=== PATIENT | male | born 1955 | race Caucasian/White ===

== ENCOUNTER 2021-03-26 10:21 | Outpatient (CLI) | payer BC, SELFPAY ==
--- NOTE | ~2021-03-26 | US_ITS ---
EXAMINATION: US carotid duplex BI DATE: 03/26/2021 10:51 INDICATION: Carotid bruit. TECHNIQUE: Grayscale, color Doppler, and pulsed Doppler images of the cervical carotid arteries were obtained. The degree of vessel stenosis is placed in one of the following categories: normal, <50%, 5 0-69%, >=70% but less than near-occlusion, near-occlusion, or total occlusion. Note that percent sten osis relative to normal distal artery lumen diameter is indirectly measured from velocity measurement s as described by Casper, et al. Radiology 2003; 229:340-346. COMPARISON: Ultrasound 10/20/2017 FINDINGS: RIGHT: The right common carotid artery (CCA) peak systolic velocity (PSV) is 108 cm/s. The right internal ca rotid artery (ICA) PSV is 54 cm/s. The right ICA end-diastolic velocity (EDV) is 17 cm/s. The right I CA/CCA PSV ratio is 0.5. Grayscale and color Doppler images yield an estimate of <50% diameter reduct ion from plaque in the ICA. There is antegrade flow in the right vertebral artery. LEFT: The left CCA PSV is 94 cm/s. The left ICA PSV is 67 cm/s. The left ICA EDV is 22 cm/s. The left ICA/C CA PSV ratio is 0.7. Shadowing plaque in the ICA obscures the lumen. There is antegrade flow in the l eft vertebral artery. IMPRESSION: 1. <50% stenosis in the right internal carotid artery. 2. <50% stenosis in the left internal carotid artery. Reviewed, dictated and finalized at location A. CEMENTER
== END 2021-03-26 10:22 | disposition home or self-care (01) ==
LOC: ANHIMG 10:28
PROVIDERS: PCP Family Medicine; Visit Provider Family Medicine
DX: R09.89 Other specified symptoms and signs involving the circulatory and respiratory systems (principal); I65.23 Occlusion and stenosis of bilateral carotid arteries
CPT/HCPCS: 93880

== ENCOUNTER 2023-01-13 13:53 | Observation (INO) | payer MEDICARE, SELFPAY ==
[2023-01-13] VITALS (8 sets, daily range): BP systolic 116–138; BP diastolic 72–84; PULSE 76–98; RESP 16–20; TEMP 36.8–37.3; O2SAT 98–99; BMI 32.1
--- NOTE | ~2023-01-13 | XR_ITS ---
XR chest 2V 01/13/2023 14:21 Indication: Chest pain. Hypertension. Procedure: PA and lateral views of the chest Comparison: No prior studies for comparison. Findings: Bibasilar atelectasis. Heart size normal. No focal air space disease, pulmonary edema, pleu ral effusion or suspected pneumothorax. No pleural effusion or pneumothorax. No acute osseous abnorma lity. Impression: 1: Bibasilar atelectasis. Reviewed, dictated and finalized at location B. Impression: 1: Bibasilar atelectasis.
--- NOTE | 2023-01-13 13:58 | ECG_ITS ---
Measurements Intervals [place] Rate: 90 P: 47 VA: 155 QRS: -22 QRSD: 96 T: 7 QT: 353 QTc: 434 Interpretive Statements SINUS RHYTHM DELAYED PRECORDIAL R/S TRANSITION BORDERLINE T WAVE ABNORMALITY- INFERIOR LEADS BORDERLINE ECG NO PREVIOUS ECG AVAILABLE FOR COMPARISON Electronically Signed On 01-13-2023 14:13:19 CDT by Harmeet Arellano D.O.
[2023-01-13 14:36] LABS: Basophils Absolute Auto 0.1 K/mm3 (0.0-0.1); Basophils Percent Auto 0.5 % (0.2-1.2); Eosinophils Absolute Auto 0.3 K/mm3 (0-0.3); Eosinophils Percent Auto 2.4 % (0-4.4); Hematocrit 43.7 % (42.0-52.0); Hemoglobin 15.8 g/dL (14.0-18.0); Immature Granulocyte Absolute 0.04 K/mm3 (0.00-0.031); Immature Granulocyte Percent A 0.3 % (0-0.5); Lymphocytes Absolute Auto 1.13 K/mm3 (0.9-3.2); Lymphocytes Percent Auto 9.2 % (18.3-44.2); Mean Corpuscular HGB Conc 36.2 g/dl (32-36); Mean Corpuscular Hemoglobin 32.1 pg (26-34); Mean Corpuscular Volume 88.8 fl (80-100); Mean Platelet Volume 8.8 fl (7.4-10.4); Monocytes Percent Auto 7.7 % (2.6-8.5); Neutrophils Absolute Auto 9.8 K/mm3 (1.3-6.7); Neutrophils Percent Auto 79.9 % (45.5-73.1); Platelet Count Result 178 k/mm3 (150-375); Red Blood Count 4.92 M/mm3 (4.6-6.20); Red Cell Distribution Width 12.4 % (11.5-14.5); White Blood Count 12.3 K/mm3 (4.5-10.0)
[2023-01-13 15:05] LABS: Prothrombin Time 13.4 Seconds (11.1-14.7)
[2023-01-13 15:06] LABS: Partial Thromboplastin Time 29.1 SECONDS (22.3-36.8)
[2023-01-13 15:31] LABS: Alanine Aminotransferase 37 U/L (6-50); Albumin Level 4.4 g/dL (3.5-5.1); Alkaline Phosphatase 69 U/L (38-126); Anion Gap 6 mmol/L (8-16); Aspartate Amino Transferase 37 U/L (17-59); Bilirubin,Total 0.8 mg/dL (0.2-1.3); Blood Urea Nitrogen 14 mg/dL (9-20); Calcium 9.1 mg/dL (8.4-10.2); Carbon Dioxide 25 mmol/L (22-30); Chloride 97 mmol/L (98-107); Estimated CRCL calculation 85 ml/min; Estimated Glomerular Filt Rate > 60; Glucose 95 mg/dL (65-110); Lipase 108 U/L (23-300); Potassium 3.6 mmol/L (3.4-5.0); Sodium 128 mmol/L (137-145); Troponin I < 0.012 ng/mL (0.000-0.034)
--- NOTE | 2023-01-13 15:50 | ED.CHESTPAIN ---
HPI - Chest Pain General Chief Complaint: Chest Pain Stated Complaint: CHEST PAIN Time Seen by Provider: 01/13/23 15:07 History of Present Illness HPI narrative: Patient is a 67-year-old male with a history of hypertension, hyperlipidemia, asthma presenting with chest pain. States that this morning he developed a dull pain on the left side of his chest that went into his left jaw. He told his who called EMS. He was given nitro which did improve the pain. States that since he has been resting he currently has no pain. States that he actually had a similar episode several weeks ago that woke him from sleep. States that he had left-sided chest pain at that time but it resolved so he ignored it. Denies recent infectious symptoms. No diaphoresis, palpitations, lightheadedness, nausea, leg swelling. Related Data Home Medications Medication Instructions Recorded Confirmed albuterol sulfate 2 puff inhalation TID PRN 01/13/23 01/13/23 Shortness Of Breath aspirin 81 mg PO DAILY 01/13/23 01/13/23 budesonide-formoterol HFA 160 2 puff inhalation DAILY PRN 01/13/23 01/13/23 mcg-4.5 mcg/actuation aerosol Shortness Of Breath inhaler (Symbicort) ergocalciferol (vitamin D2) 1,250 1,250 mcg PO WEEKLY 01/13/23 01/13/23 mcg (50,000 unit) capsule latanoprost 0.005 % eye drops 1 drp EACH EYE DAILY 01/13/23 01/13/23 loratadine 10 mg tablet (Claritin) 10 mg PO DAILY 01/13/23 01/13/23 tamsulosin 0.4 mg capsule 0.4 mg PO DAILY 01/13/23 01/13/23 Allergies Allergy/AdvReac Type Severity Reaction Status Date / Time No Known Allergies Allergy Mild Verified 01/13/23 14:24 Review of Systems Review of Systems: All systems reviewed & are unremarkable except as noted in HPI and below PMFSH Past Medical History Medical History (Updated 01/19/23 @ 00:29 by Umm Ralph MD) Asthma BPH (benign prostatic hyperplasia) GERD (gastroesophageal reflux disease) HLD (hyperlipidemia) HTN (hypertension) Surgical History Surgical History (Updated 01/13/23 @ 23:25 by Ashlyn Oleary APRN) History of hernia repair History of repair of hiatal hernia Social History Social History Smoking status: Never smoker Alcohol intake: never Substance use: never Lack of Transportation: No Lack of Food: Never True Current Housing: I Have Housing Concerned About Future Housing: No Difficulty Paying Gas/Electric Bills: No Difficulty Paying for Meds: No Currently Unemployed: No Education: Master's Degree or Higher Difficulty w/ Childcare or Family Care: No Spiritual care concerns: No Exam Narrative: GENERAL: Well-appearing and in no acute distress. Pleasant and cooperative HEAD: Normocephalic, atraumatic. EYES: PERRLA and EOMI. ENT: Grossly unremarkable NECK: Supple. CHEST: Clear to auscultation. No respiratory distress. No chest wall tenderness HEART: Regular rate and rhythm. ABDOMEN: Soft, nontender, nondistended EXTREMITIES: Normal range of motion. No edema. SKIN: Warm, dry, no rash. NEURO: No focal deficits. Alert and oriented x3. PSYCH: Normal mood and affect. Course Vital Signs Vital signs: Vital Signs Temperature 99.2 F 01/13/23 13:45 Pulse Rate 98 01/13/23 13:45 Respiratory Rate 20 01/13/23 13:45 Blood Pressure 126/83 01/13/23 13:45 Pulse Oximetry 98 01/13/23 13:45 Oxygen Delivery Room Air 01/13/23 13:45 Temperature 98.4 F 01/14/23 14:10 Pulse Rate 72 01/14/23 14:10 Respiratory Rate 16 01/14/23 14:10 Blood Pressure 145/86 H 01/14/23 14:10 Pulse Oximetry 100 01/14/23 14:10 Oxygen Delivery Room Air 01/14/23 10:00 Fraction of Inspired Oxygen 21 01/14/23 07:44 MDM - Chest Pain MDM Narrative Medical decision making narrative: Patient is a 67-year-old male presenting with left-sided chest pain. Vitals are stable. Exam remarkable for the above. EKG per my interpretation shows
[2023-01-13 17:40] LABS: Troponin I < 0.012 ng/mL (0.000-0.034)
[2023-01-13] MEDS: ACETAMINOPHEN 500 MG TABLET 1000 MG PO (20:02)
[2023-01-13 20:28] LABS: Troponin I < 0.012 ng/mL (0.000-0.034)
--- NOTE | 2023-01-13 23:14 | PM.IMHP ---
H&P: HPI History of Present Illness Date/Time: 01/13/23 23:14 Chief Complaint: Chest Pain Narrative: 67 y/o M presents here with chest pain w/radiation into jaw with PMH of HTN, HLD, GERD, BPH, SIDNEY w/home CPAP, and asthma. Patient presents here chest pain began 12:00 p.m., no exertion during initial symptoms. Pain radiated into his jaw, described as a dull ache, constant, and indigestion. No other associated symptoms - diaphoresis, nausea, shortness of breath. Given once sublingual nitro by EMS with partial resolution of pain. Two additional sublingual nitro given in ED with full resolution of pain. Current level - 04/26, described as achy. Indigestion has resolved. Patient reports 1 similar previous episode 2 weeks ago. Chest pain woke the patient up in the middle of the night and lasted approximately 1 hour. Hypertension is currently managed by patient's PCP. No significant family cardiac history. Review of Systems Review of Systems: All systems reviewed & are unremarkable except as noted in HPI and below PMFSH Past Medical History Medical History (Updated 01/13/23 @ 23:46 by Ashlyn Oleary APRN) Asthma BPH (benign prostatic hyperplasia) GERD (gastroesophageal reflux disease) HLD (hyperlipidemia) HTN (hypertension) Surgical History Surgical History (Updated 01/13/23 @ 23:25 by Ashlyn Oleary APRN) History of hernia repair History of repair of hiatal hernia Social History Social History Smoking status: Never smoker Alcohol intake: never Substance use: never Lack of Transportation: No Lack of Food: Never True Current Housing: I Have Housing Concerned About Future Housing: No Difficulty Paying Gas/Electric Bills: No Difficulty Paying for Meds: No Currently Unemployed: No Education: Master's Degree or Higher Difficulty w/ Childcare or Family Care: No Spiritual care concerns: No Meds Home Medications and Allergies Home Medications Medication Instructions Recorded Confirmed Type albuterol sulfate 2 puff inhalation TID PRN 01/13/23 01/13/23 History Shortness Of Breath aspirin 81 mg PO DAILY 01/13/23 01/13/23 History budesonide-formoterol HFA 160 2 puff inhalation DAILY PRN 01/13/23 01/13/23 History mcg-4.5 mcg/actuation aerosol Shortness Of Breath inhaler (Symbicort) ergocalciferol (vitamin D2) 1,250 1,250 mcg PO WEEKLY 01/13/23 01/13/23 History mcg (50,000 unit) capsule famotidine 40 mg tablet 40 mg PO DAILY 01/13/23 01/13/23 History latanoprost 0.005 % eye drops 1 drp EACH EYE DAILY 01/13/23 01/13/23 History loratadine 10 mg tablet (Claritin) 10 mg PO DAILY 01/13/23 01/13/23 History olmesartan 40 1 tablet PO DAILY 01/13/23 01/13/23 History mg-hydrochlorothiazide 12.5 mg tablet tamsulosin 0.4 mg capsule 0.4 mg PO DAILY 01/13/23 01/13/23 History Allergies Allergy/AdvReac Type Severity Reaction Status Date / Time No Known Allergies Allergy Mild Verified 01/13/23 14:24 Vital Signs Vital Signs - 24 hr 01/13/23 13:45 01/13/23 14:01 01/13/23 15:01 Temperature 99.2 F Pulse Rate 98 92 78 Respiratory Rate 20 18 19 Blood Pressure 126/83 136/81 130/81 Pulse Oximetry 98 98 98 Oxygen Delivery Room Air 01/13/23 13:45 01/13/23 16:00 01/13/23 17:51 Temperature Pulse Rate 83 76 Respiratory Rate 16 16 Blood Pressure 116/84 126/78 Pulse Oximetry 99 98 Oxygen Delivery Room Air 01/13/23 18:31 01/13/23 18:55 01/13/23 20:04 Temperature 98.2 F 98.2 F Pulse Rate 82 82 Respiratory Rate 18 18 Blood Pressure 128/72 138/78 Pulse Oximetry 98 99 Oxygen Delivery Room Air 01/13/23 20:00 01/13/23 20:00 01/13/23 22:41 Temperature Pulse Rate 82 83 Respiratory Rate 18 Blood Pressure Pulse Oximetry 99 Oxygen Delivery Room Air CPAP Exam Const: General: comfortable and no acute distress HENMT: Face/Nose/Sinus: Normal nares present Mouth:
[2023-01-14] VITALS (8 sets, daily range): BP systolic 130–145; BP diastolic 79–86; PULSE 68–84; RESP 16–18; TEMP 36.6–36.9; O2SAT 98–100
--- NOTE | 2023-01-14 | ECHO_ITS ---
Patient Info Name: Tunde Roberts Age: 67 years : 1955 Gender: Male Ht: 67 in Wt: 200 lbs BSA: 2.10 m2 HR: 68 bpm BP: 130 / 79 mmHg Heart Rhythm: Sinus Rhythm Technical Quality: Good Exam Date: 01/14/2023 11:11 AM Exam Location: [facility] Patient Status: Inpatient Admit Date: 01/13/2023 Staff Ordering Physician: Ashlyn Oleary APRN Media Manager: Zoë Reeder RDCS Attending Provider: Brittany Avila MD Referring Physician: Anirudh DUNCAN; Exam Type: CA echo doppler color flow Study Info Indications - CP, new murmur Complete two-dimensional, color flow and Doppler transthoracic echocardiogram is performed. Summary 1. Complete two-dimensional, color flow and Doppler transthoracic echocardiogram is performed. 2. Normal left ventricular size and systolic function without ischemic wall motion abnormalities. 3. No valvular dysfunction. Left Ventricle Left ventricular chamber dimension is normal. Left ventricular systolic function is normal, estimated at 65-70%. There is mild concentric increased left ventricular wall thickness. The left ventricular diastolic function is normal. Right Ventricle Right ventricular chamber dimension is normal. Left Atria Left atrial chamber dimension is normal. Right Atria Right atrial chamber dimension is normal. Aortic Valve The aortic valve is normal. Pulmonic Valve The pulmonic valve is not well visualized. Mitral Valve The mitral valve has normal leaflets. There is trace mitral valve regurgitation. Tricuspid Valve The tricuspid valve leaflets are normal. Pericardium/Pleural The pericardium appears normal. Aorta The aortic root size at the sinus of Valsalva is normal. Left Ventricular Outflow Tract Name Value Normal LVOT 2D LVOT Diameter 1.8 cm LVOT Doppler LVOT Peak Gradient 5 mmHg LVOT Mean Gradient 3 mmHg LVOT VTI 37 cm LVOT VTI/AV VTI Ratio 1.0 LVOT Stroke Volume 94 ml LVOT CO 4.9 l/min LVOT CI 2.4 l/min/m2 Pulmonic Valve Name Value Normal RVOT Doppler RVOT Peak Gradient 3 mmHg PV Doppler PV Peak Gradient 4 mmHg Mitral Valve Name Value Normal MV Doppler MV Decel [place] 311 cm/s2 MV PHT 85 ms MV Area (PHT) 2.6 cm2 4.0-5.0 MV Regurgitation Doppler
[2023-01-14 00:48] LABS: Appearance Urine Clear (Clear); Bilirubin Urine Negative (Negative); Blood Urine Negative (Negative); Color Urine Yellow (Yellow); Glucose Urine UA Negative (Negative); Ketones Urine Negative (Negative); Leukocyte Esterase Ur Negative LEU/UL (NEGATIVE); Nitrate Urine Negative (Negative); Protein Urine Negative (Negative); Specific Grav Ur 1.013 (1.001-1.035); Urobilinogen Urine 0.2 mg/dL (<2.0)
[2023-01-14 01:28] LABS: Add Urine Microscopic? NO
[2023-01-14 01:32] LABS: Sodium Urine Random 57 meq/L
[2023-01-14] MEDS: FLUTICASONE/SALMETEROL 115-21 MCG INHALER 1 PUFF 2 PUFF INHALATION (07:41)
--- NOTE | 2023-01-14 09:33 | P.PNIM_ITS ---
Progress Note: A&P Assessment and Plan (1) Chest pain at rest: Code(s): R07.9 - Chest pain, unspecified Status: Acute (2) Murmur, cardiac: Code(s): R01.1 - Cardiac murmur, unspecified Status: Acute (3) Acute hyponatremia: Code(s): E87.1 - Hypo-osmolality and hyponatremia Status: Acute Plan 1. Chest pain at rest * Initial EKG impression Sinus rhythm no specific T-wave changes * Troponin negative X3 * CXR impression 1: Bibasilar atelectasis. * Carotid Doppler study -03/26/21 1. <50% stenosis in the right internal carotid artery. 2. <50% stenosis in the left internal carotid artery. * Heart Score History - highly suspicious given resolution of pain with nitro SL x3, +2 EKG - repolarization disturbance (delayed precordial transition), +1 Age - >65, +2 RF - HTN, HLD (2), +1 Initial Trop - negative, 0 Total: 6 * Stress Test - complete on Mon, NPO at midnight on Sun * SL nitro PRN for reoccurrence of CP * consult cardiology. Network Support Administrator considers patient needs outpatient stress test, and has agreed to discharge patient today 2. Murmur, cardiac * No previous history per patient * Family history of bicuspid valve (father) requiring replacement. * No evidence of volume overload, third spacing * No previous echo on file, echo normal EF, no significant valvular disease 3. Hyponatremia * Initial Na - 128 * Check serum osmolality, urine osmolality, and urine sodium concentration as well as a UA. * further plan of care to be determined based off results Chronic Conditions - HTN: Continue home medication - olmesartan, HCTZ, ASA 81 - Asthma: Continue home medication - albuterol, Advair - SIDNEY: continue home CPAP - BPH: Continue home medication - tamsulosin - supplements: Continue ergocalciferol - continue home latanoprost eye drop Acid reflux Start Protonix 40 mg daily p.o.. If persists, patient needs to see primary care doctor and referral to GI for further workup per primary care doctor Diet: heart healthy GI Prophylaxis: home famotidine DVT Prophylaxis: SCDs, Lovenox 40 Lines: pIV Code Status: Full Code Subjective Date/time seen: 01/14/23 09:33 Interval history: I saw on exam patient today. Patient denies chest pain, palpitation, shortness breast, abdomen pain. Patient has acid reflux, denies nausea vomiting diarrhea melena red blood per rectum Exam Narrative: GENERAL: Pleasant, in no acute distress. Well-nourished. - EYES: EOMI. Anicteric. - HENT: Moist mucous membranes. - LUNGS: Clear to auscultation bilateral ly, no wheezing, rhonchi, or rales. - CARDIOVASCULAR: Regular rate and rhyth m. No murmur. No JVD. - ABDOMEN: Soft, non-tender and non-dist ended. No palpable masses. - EXTREMITIES: No edema. Peripheral puls es 2+. Non-tender. - NEUROLOGIC: No focal neurological defi cits. CN II-XII grossly intact. - PSYCHIATRIC: Awake, Alert and oriented x 3. Appropriate mood and affect. - SKIN: No rashes or lesions. Warm. - LYMPH: No cervical lymphadenopathy. Objective Data Vital Signs Vital Signs:
--- NOTE | 2023-01-14 09:33 | PM.IMPN ---
Progress Note: A&P Assessment and Plan (1) Chest pain at rest: Code(s): R07.9 - Chest pain, unspecified Status: Acute (2) Murmur, cardiac: Code(s): R01.1 - Cardiac murmur, unspecified Status: Acute (3) Acute hyponatremia: Code(s): E87.1 - Hypo-osmolality and hyponatremia Status: Acute Plan 1. Chest pain at rest Initial EKG impression Sinus rhythm no specific T-wave changes Troponin negative X3 CXR impression 1: Bibasilar atelectasis. Carotid Doppler study -03/26/21 1. <50% stenosis in the right internal carotid artery. 2. <50% stenosis in the left internal carotid artery. Heart Score History - highly suspicious given resolution of pain with nitro SL x3, +2 EKG - repolarization disturbance (delayed precordial transition), +1 Age - >65, +2 RF - HTN, HLD (2), +1 Initial Trop - negative, 0 Total: 6 Stress Test - complete on Mon, NPO at midnight on Sun SL nitro PRN for reoccurrence of CP consult cardiology. Scrap Drop Crane Operator considers patient needs outpatient stress test, and has agreed to discharge patient today 2. Murmur, cardiac No previous history per patient Family history of bicuspid valve (father) requiring replacement. No evidence of volume overload, third spacing No previous echo on file, echo normal EF, no significant valvular disease 3. Hyponatremia Initial Na - 128 Check serum osmolality, urine osmolality, and urine sodium concentration as well as a UA. further plan of care to be determined based off results Chronic Conditions - HTN: Continue home medication - olmesartan, HCTZ, ASA 81 - Asthma: Continue home medication - albuterol, Advair - SIDNEY: continue home CPAP - BPH: Continue home medication - tamsulosin - supplements: Continue ergocalciferol - continue home latanoprost eye drop Acid reflux Start Protonix 40 mg daily p.o.. If persists, patient needs to see primary care doctor and referral to GI for further workup per primary care doctor Diet: heart healthy GI Prophylaxis: home famotidine DVT Prophylaxis: SCDs, Lovenox 40 Lines: pIV Code Status: Full Code Subjective Date/time seen: 01/14/23 09:33 Interval history: I saw on exam patient today. Patient denies chest pain, palpitation, shortness breast, abdomen pain. Patient has acid reflux, denies nausea vomiting diarrhea melena red blood per rectum Exam Narrative: GENERAL: Pleasant, in no acute distress. Well-nourished. - EYES: EOMI. Anicteric. - HENT: Moist mucous membranes. - LUNGS: Clear to auscultation bilaterally, no wheezing, rhonchi, or rales. - CARDIOVASCULAR: Regular rate and rhythm. No murmur. No JVD. - ABDOMEN: Soft, non-tender and non-distended. No palpable masses. - EXTREMITIES: No edema. Peripheral pulses 2+. Non-tender. - NEUROLOGIC: No focal neurological deficits. CN II-XII grossly intact. - PSYCHIATRIC: Awake, Alert and oriented x 3. Appropriate mood and affect. - SKIN: No rashes or lesions. Warm. - LYMPH: No cervical lymphadenopathy. Objective Data Vital Signs Vital Signs: Vital Signs - 24 hr 01/13/23 13:45 01/13/23 14:01 01/13/23 15:01 Temperature 99.2 F Pulse Rate 98 92 78 Respiratory Rate 20 18 19 Blood Pressure 126/83 136/81 130/81 Pulse Oximetry 98 98 98 Oxygen Delivery Room Air Fraction of Inspired Oxygen 01/13/23 13:45 01/13/23 16:00 01/13/23 17:51 Temperature Pulse Rate 83 76 Respiratory Rate 16 16 Blood Pressure 116/84 126/78 Pulse Oximetry 99 98 Oxygen Delivery Room Air Fraction of Inspired Oxygen 01/13/23 18:31 01/13/23 18:55 01/13/23 20:04 Temperature 98.2 F 98.2 F Pulse Rate 82 82 Respiratory Rate 18 18 Blood Pressure 128/72 138/78 Pulse Oximetry 98 99 Oxygen Delivery Room Air Fraction of Inspired Oxygen 01/13/23 20:00 01/13/23 20:00 01/13/23 22:41 Temperature Pulse Rate 82 83 Respiratory Rate 18 Blood Pressure Pulse Oximetry 99 Oxygen Delivery Room
[2023-01-14 09:59] LABS: Basophils Absolute Auto 0.1 K/mm3 (0.0-0.1); Basophils Percent Auto 0.7 % (0.2-1.2); Eosinophils Absolute Auto 0.4 K/mm3 (0-0.3); Eosinophils Percent Auto 4.2 % (0-4.4); Hematocrit 44.1 % (42.0-52.0); Hemoglobin 15.6 g/dL (14.0-18.0); Immature Granulocyte Absolute 0.02 K/mm3 (0.00-0.031); Immature Granulocyte Percent A 0.2 % (0-0.5); Lymphocytes Absolute Auto 1.56 K/mm3 (0.9-3.2); Lymphocytes Percent Auto 18.6 % (18.3-44.2); Mean Corpuscular HGB Conc 35.4 g/dl (32-36); Mean Corpuscular Hemoglobin 32.4 pg (26-34); Mean Corpuscular Volume 91.5 fl (80-100); Mean Platelet Volume 9.6 fl (7.4-10.4); Monocytes Percent Auto 11.9 % (2.6-8.5); Neutrophils Absolute Auto 5.4 K/mm3 (1.3-6.7); Neutrophils Percent Auto 64.4 % (45.5-73.1); Platelet Count Result 177 k/mm3 (150-375); Red Blood Count 4.82 M/mm3 (4.6-6.20); Red Cell Distribution Width 12.8 % (11.5-14.5); White Blood Count 8.4 K/mm3 (4.5-10.0)
--- NOTE | 2023-01-14 10:03 | PM.CNCAR ---
Assessment and Plan Assessment and plan (1) Chest pain at rest: Code(s): R07.9 - Chest pain, unspecified Status: Acute Plan This is a 67-year-old man who has no prior history of coronary artery disease presenting with an episode of chest pain yesterday that lasted for a number of hours. In the face of this there is no objective evidence of myocardial injury with 3- troponin levels and a unremarkable appearing electrocardiogram. Risk factors of course include hypertension and dyslipidemia. He does also have a soft right carotid bruit on exam and a murmur compatible with aortic valve sclerosis. The characteristics of this murmur are not consistent with significant aortic stenosis and I do not believe that has anything to do with an episode of chest pain which is being described above. Performing a stress test is reasonable given his risk factors. It is my opinion that he is stable for discharge in the stress test can certainly be done as an outpatient. If it is your desire to keep him in the hospital perform the test as has been ordered for Monday that is of course fine as well. Tunde Camreon MD [facility] History of Present Illness History of Present Illness Consult date/time: 01/14/23 10:03 Reason For Visit: Chest Pain Narrative: This is a very pleasant 67-year-old man I am seeing at the request of the hospitalist's because of chest pain. The patient is not known to have any cardiac problems before this and began to experience chest pain yesterday late in the morning and eventually came to the emergency room for evaluation. He describes this as a dull aching pain in the center substernal region sometimes to the left side of the chest and up into the left side of the neck. The symptoms he thought felt like a chest wall/pulled muscle problem as he did notice that moving his arms around on the left side did sometimes make this worse. He did not have any radiation anywhere else he did not experience any shortness of breath diaphoresis or nausea. The symptom was of concern so he called an nurse that is provided by his insurance company would tries to call an ambulance and come to the emergency department. On route he was given nitroglycerin which significantly improved the pain but did not alleviated entirely. Over the course of the next 4-5 hours the symptoms gradually subsided. His emergency room evaluation was unremarkable since admission he has not had any further symptoms he has had of course a series of 3 troponin levels done which are all unremarkable. He does not notice any history of exertional symptoms in general he with activity he does not trigger chest pain shortness of breath he has not been experiencing any palpitations orthopnea PND or edema. He has a history of hypertension and history of dyslipidemia and asthma. The hospitalist's note have been reviewed. They have ordered a Lexiscan nuclear stress test which of course will be performed on Monday if he stays in the hospital. Review of Systems Constitutional: Constitutional: Reports no additional constitutional complaints Eyes: Eyes: Reports no additional eye complaints ENT: Reports system reviewed and no additional complaints, except as documented Cardiovascular: Cardiovascular: Reports as per HPI Respiratory: Respiratory: Reports no additional respiratory complaints Gastrointestinal: Gastrointestinal: Reports heartburn Musculoskeletal: Musculoskeletal: Reports back pain Integumentary/Breasts: Skin/Breast: Reports system reviewed and no additional complaints, except as docu Neurologic: Reports system reviewed and no additional complaints, except as documented Endocrine: Endocrine: Reports no additional endocrine complaints Hematologic/Lymphatic: Hematologic/Lymphatic: Reports no additional hematologic/lymphatic complaints Allergic/Immunologic: Allergic/Immunologic: Reports no additional allergic/immunologic complaints PMFSH Past Medical History
[2023-01-14 10:10] LABS: Anion Gap 7 mmol/L (8-16); Blood Urea Nitrogen 13 mg/dL (9-20); Calcium 9.4 mg/dL (8.4-10.2); Carbon Dioxide 27 mmol/L (22-30); Chloride 96 mmol/L (98-107); Estimated CRCL calculation 76 ml/min; Estimated Glomerular Filt Rate > 60; Glucose 99 mg/dL (65-110); Potassium 4.3 mmol/L (3.4-5.0); Sodium 130 mmol/L (137-145)
[2023-01-14] MEDS: OLMESARTAN MEDOXOMIL 20 MG TABLET 40 MG PO (10:21)
[2023-01-14] MEDS: FAMOTIDINE 20 MG TABLET 40 MG PO (10:22)
[2023-01-14] MEDS: ASPIRIN 81 MG ENTERIC TABLET PO (10:22)
[2023-01-14] MEDS: hydroCHLOROthiazide 12.5 MG CAPSULE PO (10:22)
[2023-01-14] MEDS: LORATADINE 10 MG TABLET PO (10:23)
[2023-01-14] MEDS: ENOXAPARIN 40 MG/0.4 ML SYRINGE SUB-Q (10:23)
[2023-01-14] MEDS: ACETAMINOPHEN 325 MG TABLET 650 MG PO (12:52)
--- NOTE | 2023-01-14 13:56 | PM.DS ---
DS: Admitting Diagnosis Discharge Date Today Admitting Diagnosis (1) Chest pain at rest: ?Code(s): R07.9 - Chest pain, unspecified ?Status:?Acute (2) Murmur, cardiac: ?Code(s): R01.1 - Cardiac murmur, unspecified ?Status:?Acute (3) Acute hyponatremia: ?Code(s): E87.1 - Hypo-osmolality and hyponatremia ?Status:?Acute DS: Discharge Diagnosis Discharge Diagnosis (1) Chest pain at rest: Code(s): R07.9 - Chest pain, unspecified Status: Acute (2) Murmur, cardiac: Code(s): R01.1 - Cardiac murmur, unspecified Status: Acute (3) Acute hyponatremia: Code(s): E87.1 - Hypo-osmolality and hyponatremia Status: Acute DS: Summary Hospital Course Hospital Course: Per H&P, 67 y/o M presents here with chest pain w/radiation into jaw with PMH of HTN, HLD, GERD, BPH, SIDNEY w/home CPAP, and asthma. Patient presents here chest pain began 12:00 p.m., no exertion during initial symptoms.? Pain radiated into his jaw, described as a dull ache, constant, and indigestion.? No other associated symptoms - diaphoresis, nausea, shortness of breath.? Given once sublingual nitro by EMS with partial resolution of pain.? Two additional sublingual nitro given in ED with full resolution of pain.? Current level - 04/26, described as achy.? Indigestion has resolved.? Patient reports 1 similar previous episode 2 weeks ago.? Chest pain woke the patient up in the middle of the night and lasted approximately 1 hour.? Hypertension is currently managed by patient's PCP.? No significant family cardiac history. The following medical issues have been addressed during hospitalization 1. Chest pain at rest Initial EKG impression Sinus rhythm no specific T-wave changes Troponin negative X3 CXR impression 1: Bibasilar atelectasis. Carotid Doppler study -03/26/21 1. <50% stenosis in the right internal carotid artery. 2. <50% stenosis in the left internal carotid artery. Heart Score History - highly suspicious given resolution of pain with nitro SL x3, +2 EKG - repolarization disturbance (delayed precordial transition), +1 Age - >65, +2 RF - HTN, HLD (2), +1 Initial Trop - negative, 0 Total: 6 Stress Test - complete on Mon, NPO at midnight on Sun SL nitro PRN for reoccurrence of CP consult cardiology. Dinkey Operator considers patient needs outpatient stress test, and has agreed to discharge patient today 2. Murmur, cardiac No previous history per patient Family history of bicuspid valve (father) requiring replacement. No evidence of volume overload, third spacing No previous echo on file, echo normal EF, no significant valvular disease 3. Hyponatremia Initial Na - 128 Check serum osmolality, urine osmolality pending report. Patient is on Benicar, possible per Renal Repeat sodium 130 Stop Benicar, start losartan 50 mg daily p.o. Start sodium chloride 1 g t.i.d. p.o. with meal for 10 days Patient needs to follow up with PCP for primary care doctor and recheck sodium level Chronic Conditions - HTN: Continue home medication -discontinue olmesartan/HCTZ, start losartan ASA 81 - Asthma: Continue home medication - albuterol, Advair - SIDNEY: continue home CPAP - BPH: Continue home medication - tamsulosin - supplements: Continue ergocalciferol - continue home latanoprost eye drop Acid reflux Start Protonix 40 mg daily p.o.. If persists, patient needs to see primary care doctor and referral to GI for further workup per primary care doctor Time Spent with Patient Time attestation: Total time spent providing and/or coordinating discharge services: Exam Narrative: GENERAL: Pleasant, in no acute distress. Well-nourished. - EYES: EOMI. Anicteric. - HENT: Moist mucous membranes. - LUNGS: Clear to auscultation bilaterally, no wheezing, rhonchi, or rales. - CARDIOVASCULAR: Regular rate and rhythm. No murmur. No JVD. - ABDOMEN: Soft, non-tender and non-distended. N
[2023-01-19 14:48] LABS: Osmolality, Urine 409 mOsm/kg (50-1200)
== END 2023-01-14 15:26 | disposition home or self-care (01) ==
LOC: ANHED 15:07 → ANH3MED 18:05
PROVIDERS: Emergency Medicine; Student in an Organized Health Care Education/Training Program; Admitting Provider Hospitalist; Emergency Provider Emergency Medicine; PCP Family Medicine; Visit Provider Hospitalist
DX: R07.9 Chest pain, unspecified (principal); R01.1 Cardiac murmur, unspecified; E87.1 Hypo-osmolality and hyponatremia; I10 Essential (primary) hypertension; J98.11 Atelectasis; E78.5 Hyperlipidemia, unspecified; K21.9 Gastro-esophageal reflux disease without esophagitis; J45.909 Unspecified asthma, uncomplicated; N40.0 Benign prostatic hyperplasia without lower urinary tract symptoms; G47.33 Obstructive sleep apnea (adult) (pediatric); Z99.89 Dependence on other enabling machines and devices; Z79.51 Long term (current) use of inhaled steroids; Z79.899 Other long term (current) drug therapy
CPT/HCPCS: 36415; 71046; 80048; 80053; 81003; 83690; 83930; 83935; 84300; 84484; 85025; 85610; 85730; 93005; 93306; 94640; 96372; 99285; A9270; G0378; J1650

== ENCOUNTER 2023-02-06 08:44 | Outpatient (CLI) | payer MEDICARE, SELFPAY ==
[2023-02-06 20:50] LABS: Anion Gap 7 mmol/L (8-16); Blood Urea Nitrogen 12 mg/dL (9-20); Calcium 9.7 mg/dL (8.4-10.2); Carbon Dioxide 27 mmol/L (22-30); Chloride 103 mmol/L (98-107); Estimated Glomerular Filt Rate > 60; Glucose 79 mg/dL (65-110); Sodium 137 mmol/L (137-145)
== END 2023-02-06 08:45 | disposition home or self-care (01) ==
PROVIDERS: PCP Nurse Practitioner Adult Health; Visit Provider Nurse Practitioner Adult Health
DX: E87.1 Hypo-osmolality and hyponatremia (principal)
CPT/HCPCS: 36415; 80048

== ENCOUNTER 2023-05-15 13:47 | Outpatient (CLI) | payer MEDICARE, SELFPAY ==
[2023-05-15 15:20] LABS: Anion Gap 9 mmol/L (8-16); Blood Urea Nitrogen 17 mg/dL (9-20); Calcium 9.2 mg/dL (8.4-10.2); Carbon Dioxide 28 mmol/L (22-30); Chloride 97 mmol/L (98-107); Estimated Glomerular Filt Rate > 60; Glucose 101 mg/dL (65-110); Potassium 3.7 mmol/L (3.4-5.0); Sodium 134 mmol/L (137-145)
== END 2023-05-15 13:48 | disposition home or self-care (01) ==
PROVIDERS: PCP Nurse Practitioner Adult Health; Visit Provider Nurse Practitioner Adult Health
DX: I10 Essential (primary) hypertension (principal)
CPT/HCPCS: 36415; 80048

== ENCOUNTER 2023-09-27 07:15 | Outpatient (CLI) | payer MEDICARE, SELFPAY ==
[2023-09-27 19:11] LABS: Basophils Absolute Auto 0.1 K/mm3 (0.0-0.1); Basophils Percent Auto 0.9 % (0.2-1.2); Eosinophils Absolute Auto 0.2 K/mm3 (0-0.3); Eosinophils Percent Auto 4.2 % (0-4.4); Hematocrit 45.6 % (42.0-52.0); Hemoglobin 15.6 g/dL (14.0-18.0); Immature Granulocyte Absolute 0.02 K/mm3 (0.00-0.031); Immature Granulocyte Percent A 0.3 % (0-0.5); Lymphocytes Absolute Auto 1.63 K/mm3 (0.9-3.2); Lymphocytes Percent Auto 28.2 % (18.3-44.2); Mean Corpuscular HGB Conc 34.2 g/dl (32-36); Mean Corpuscular Volume 93.4 fl (80-100); Mean Platelet Volume 9.4 fl (7.4-10.4); Monocytes Absolute Auto 0.5 K/mm3 (0.1-0.6); Monocytes Percent Auto 8.8 % (2.6-8.5); Neutrophils Absolute Auto 3.3 K/mm3 (1.3-6.7); Neutrophils Percent Auto 57.6 % (45.5-73.1); Platelet Count Result 174 k/mm3 (150-375); Red Blood Count 4.88 M/mm3 (4.6-6.20); Red Cell Distribution Width 13.6 % (11.5-14.5); White Blood Count 5.8 K/mm3 (4.5-10.0)
[2023-09-27 19:38] LABS: Alanine Aminotransferase 35 U/L (6-50); Albumin Level 4.2 g/dL (3.5-5.1); Alkaline Phosphatase 62 U/L (38-126); Anion Gap 6 mmol/L (4-12); Aspartate Amino Transferase 67 U/L (17-59); Bilirubin,Total 0.6 mg/dL (0.2-1.3); Blood Urea Nitrogen 13 mg/dL (9-20); Calcium 9.1 mg/dL (8.4-10.2); Carbon Dioxide 26 mmol/L (22-30); Chloride 102 mmol/L (98-107); Cholesterol 179 mg/dL (0-200); Estimated Glomerular Filt Rate > 60; Glucose 79 mg/dL (65-110); HDL Direct 29 mg/dL; Magnesium 2.1 mg/dL (1.6-2.3); Potassium 4.4 mmol/L (3.4-5.0); Sodium 134 mmol/L (137-145); Triglycerides 329 mg/dL (<150)
[2023-09-27 19:49] LABS: LDL Cholesterol Direct 96 mg/dL
== END 2023-09-27 07:16 | disposition home or self-care (01) ==
PROVIDERS: PCP Nurse Practitioner Adult Health; Visit Provider Nurse Practitioner Adult Health
DX: I10 Essential (primary) hypertension (principal)
CPT/HCPCS: 36415; 80053; 80061; 83735; 85025

== ENCOUNTER 2023-10-30 08:37 | Outpatient (CLI) | payer MEDICARE, SELFPAY ==
[2023-11-02 18:44] LABS: Testosterone Free 110.2 pg/mL (35.0-155.0); Testosterone Total 489 ng/dL (250-1100)
== END 2023-10-30 08:38 | disposition home or self-care (01) ==
PROVIDERS: PCP Nurse Practitioner Adult Health; Visit Provider Nurse Practitioner Adult Health
DX: R53.83 Other fatigue (principal)
CPT/HCPCS: 36415; 84402; 84403

== ENCOUNTER 2024-02-07 11:15 | Outpatient (CLI) | payer MEDICARE, SELFPAY ==
[2024-02-07 18:54] LABS: Alanine Aminotransferase 34 U/L (6-50); Albumin Level 4.5 g/dL (3.5-5.1); Alkaline Phosphatase 63 U/L (38-126); Anion Gap 10 mmol/L (4-12); Aspartate Amino Transferase 59 U/L (17-59); Blood Urea Nitrogen 16 mg/dL (9-20); Calcium 9.2 mg/dL (8.4-10.2); Carbon Dioxide 27 mmol/L (22-30); Chloride 100 mmol/L (98-107); Cholesterol 191 mg/dL (0-200); Estimated Glomerular Filt Rate > 60; Glucose 84 mg/dL (65-110); HDL Direct 32 mg/dL; Potassium 3.8 mmol/L (3.4-5.0); Sodium 137 mmol/L (137-145); Triglycerides 370 mg/dL (<150)
[2024-02-07 19:05] LABS: LDL Cholesterol Direct 96 mg/dL
== END 2024-02-07 11:16 | disposition home or self-care (01) ==
PROVIDERS: PCP Nurse Practitioner Adult Health; Visit Provider Nurse Practitioner Adult Health
DX: E55.9 Vitamin D deficiency, unspecified (principal); I10 Essential (primary) hypertension
CPT/HCPCS: 36415; 80053; 80061; 82306

== ENCOUNTER 2024-08-01 11:31 | Outpatient (CLI) | payer MEDICARE, SELFPAY ==
--- OUTSIDE RECORDS SUMMARY | 2024-08-01 12:20 | XMS_ITS | Clinical Summary ---
Author Organization [facility] Address [address] [place] [address] Care Team Providers Care Hydraulic Riveter Name Role Phone Kristen Sanchez MD Primary Care Provider [phone] Source Comments [facility],non-owned Affiliates and Associated Physician Practices is amultiple site organization consisting of ambulatory clinics and hospital sitesin [place], [place], [place] and [place]. This disclosure is being madepursuant to the Care Everywhere program and may not contain all information available regarding this patient. Last updated 18.[facility] Allergies No known active allergies Medications * Be aware that medications may not be up to date on this document. Alwaysverify current medications with the patient. 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 Gender Identity Not on file Sexual Orientation Not on file Last Filed Vital Signs Vital Sign Reading Time Taken Comments Blood Pressure 130/82 10/28/2017 10:10 AM CDT Pulse 72 10/28/2017 10:10 AM CDT Temperature 37.3 C (99.1 F) 10/28/2017 10:10 AM CDT Respiratory Rate 16 10/28/2017 10:10 AM CDT Oxygen Saturation 98% 10/28/2017 10:10 AM CDT Inhaled Oxygen Concentration - - Weight 88.5 kg (195 lb) 10/28/2017 10:10 AM CDT Height 170.2 cm (5' 7 ) 10/28/2017 10:10 AM CDT Body Mass Index 30.54 10/28/2017 10:10 AM CDT Plan of Treatment Health Maintenance Due Date Last Done Comments COLOGUARD (AGES 45-75) - COL ON CA SCREENING 1955 COLON MONITORING 1955 COLONOSCOPY - COLON CA SCREENING 1955 CT COLONOGRAPHY - COLON CA SCREENING 1955 Colorectal Cancer Screening 1955 FIT - COLON CA SCREENING 1955 FLEX SIG - COLON CA SCREENING 1955 LIPID TESTING 1955 HEPATITIS C SCREENING 07/30/1973 DTAP/TDAP/TD VACCINES (1 - Tdap) 08/03/1974 PNEUMOCOCCAL VACCINE 50+ (1 of 1 - PCV) 08/03/2005 ZOSTER VACCINE (1 of 2) 08/03/2005 SCREENING FOR DIABETES 10/28/2017 COVID-19 VACCINE (1 - 2023-2 5 season) 2023 DEPRESSION SCREENING 04/17/2024 INFLUENZA VACCINE (Season Ended) 2024 Respiratory Syncytial Virus (RSV) Vaccine Pt: or over 60 yrs (1 - 1-dose 75+ series) 08/03/2030 HEPATITIS B VACCINE Aged Out No longe r eligible based on patient's age to complete this topic HIB VACCINE Aged Out No longer eligi ble based on patient's age to complete this topic HPV VACCINE Aged Out No longer eligi ble based on patient's age to complete this topic MENINGOCOCCAL (Group B) VACC INE SHARED DECISION-MAKING Aged Out No longer eligibl e based on patient's age to complete this topic MENINGOCOCCAL GROUPS A/C/Y/W VACCINE Aged Out No longer eligible b ased on patient's age to complete this topic Insurance RUPAL Care Teams Hydraulic Riveter Relationship Specialty Start Date End Date Kristen Sanchez MD [facility] [place] [id number] PCP - General Family Medicine 10/28/17
--- OUTSIDE RECORDS SUMMARY | 2024-08-01 12:20 | XMS_ITS | Continuity of Care Document ---
Author Organization [facility] Address [id number] [place] [address] [address] [place] [address] Phone Care Team Providers Care Licensed Insurance Agent Name Role Phone Torres OD, Hernandez Unavailable Unavailable Advance Directives Directive Yes / No Effective Date File Name No Information Encounters Encounter Description Practice Location Reason(s) For Visit Diagnoses Date Provider Providers Copied on Encounter [facility], [address], [place], [place], [id number], [place] tel:[phone] [facility] ([facility])[3] No Information [facility] Torres OD Hernandez. [address], [place], [address], [place]. tel:[phone] Family History Family Member Type Diagnosis Age At Onset No Information Payers Payer name Insurance type Covered green party ID Authoriza tion(s) No Information Social History Type Description Quantity Date Captured Comments Sex Male Smoking Status No Information Chief Complaint And Reason For Visit No Information Reason For Referral Reason For Referral No Information History Of Present Illness Encounter Date Complaint History Of Prese nt Illness No Information Functional Status Date Functional Assessmen t No Information Instructions Date Instruction Additional Infor mation No Information Assessments Type Assessment Date No Information Patient Care Teams Name Effective Dates (start - stop) Status Members No Information
--- OUTSIDE RECORDS SUMMARY | 2024-08-01 12:20 | XMS_ITS | Clinical Summary ---
Author Organization [facility] Address [address] [place] [address] Care Team Providers Care Automobile Body Worker Name Role Phone Unavailable Primary Care Provider Unavailabl e Allergies No known active allergies Medications methylPREDNISol one (Medrol, Syed,) 4 mg Tablets, Dose Pack Take as directed on package 21 Tablet 02/09/2022 2:34 PM CDT 02/09/2022 Active azithromycin (Zithromax Z-Syed) 250 mg tablet TAKE 2 TABLETS (500 MG) BY ORAL ROUTE ONCE DAILY FOR 1 DAY THEN 1 TABLET (250 MG) BY ORAL ROUTE ONCE DAILY FOR 4 DAYS 6 Tablet 02/09/2022 2:34 PM CDT 02/09/2022 Active olmesartan-hydr oCHLOROthiazide (BENICAR-HCT) 40-12.5 mg tablet Take 1 Tablet by mouth daily. 30 Tablet 3 09/07/2022 9:53 AM CDT 09/05/2022 Active Social History Tobacco Use Types Packs/Day Years Used Date Smoking Tobacco: Never Assessed Sex and Gender Information Value Date Recorded Sex Assigned at Not on file Legal Sex Male 11:27 AM CDT Gender Identity Not on file Sexual Orientation Not on file Plan of Treatment Health Maintenance Due Date Last Done Comments DTAP/TDAP/TD VACCINES (1 - Tdap) 08/03/1974 COLORECTAL SCREENING 08/03/2000 Colorectal Cancer Screening 08/03/2000 FIT-DNA Q 3 years 08/03/2000 FIT/FOBT Q 1 year 08/03/2000 Flex Sig/CT Colonography Q 5 years 08/03/2000 PNEUMOCOCCAL VACCINE 50+ YEARS (1 of 1 - PCV) 08/04/19 06 ZOSTER VACCINE (1 of 2) 08/03/2005 INFLUENZA VACCINE (#1) 2023 RSV VACCINE (60+ or ) (1 - 1-dose 75+ series) 08/03/2030 Insurance RX [facility] Medicare Part D
--- OUTSIDE RECORDS SUMMARY | 2024-08-01 12:20 | XMS_ITS | Clinical Summary ---
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 Gender Identity Not on file Sexual Orientation Not on file Plan of Treatment Health Maintenance Due Date Last Done Comments Hepatitis C Virus (HCV) Screening 1955 Colonoscopy 08/03/2000 Colorectal Cancer Screening 08/03/2000 Cologuard 08/03/2005 Immunochemical Fecal Occult Blood 08/03/2005 Pneumococcal Immunization (50+ years) (1 of 1 - PCV) 08/03/2005 PSA Discussion 08/03/2010 Zoster Immunization (2 of 3) 05/30/2016 04/04/2016 Influenza Immunization (#1) 2023 10/0 07/2020, 01/10/2020, 03/02/2019, Additional history exists SARS-COV-2 Immunization ( season) 2023 01/18/2021, 07/07/2020, 06/16/2020 Respiratory Syncytial Virus (RSV) Immunization (Adult) (1 - 1-dose 75+ series) 08/03/2030 DTaP/Tdap/Td Immunization Discontinued 11/02/2018, TdaP Immunization Completed 11/02/2018 Hepatitis B Immunization Aged Out No longer eligible based on patient's age to complete this topic Meningococcal Immunization (ACWY) Aged Out No longer eligible based on patient's age to complete this topic Rotavirus Immunization Aged Out No lo nger eligible based on patient's age to complete this topic
[2024-08-01 19:07] LABS: Alanine Aminotransferase 37 U/L (6-50); Albumin Level 4.4 g/dL (3.5-5.1); Alkaline Phosphatase 63 U/L (38-126); Anion Gap 9 mmol/L (4-12); Aspartate Amino Transferase 68 U/L (17-59); Bilirubin,Total 0.7 mg/dL (0.2-1.3); Blood Urea Nitrogen 14 mg/dL (9-20); Calcium 9.3 mg/dL (8.4-10.2); Carbon Dioxide 26 mmol/L (22-30); Chloride 100 mmol/L (98-107); Cholesterol 170 mg/dL (0-200); Estimated Glomerular Filt Rate > 60; Glucose 77 mg/dL (65-110); HDL Direct 26 mg/dL; Magnesium 2.2 mg/dL (1.6-2.3); Potassium 4.1 mmol/L (3.4-5.0); Sodium 135 mmol/L (137-145); Triglycerides 216 mg/dL (<150)
[2024-08-01 19:18] LABS: LDL Cholesterol Direct 101 mg/dL
[2024-08-01 19:37] LABS: Prostate Specific Antigen 2.4 ng/mL (< OR = 4.0)
[2024-08-01 20:45] LABS: Vitamin D 25 Hydroxy 61.8 ng/mL
== END 2024-08-01 11:32 | disposition home or self-care (01) ==
LOC: ANHBWCLAB 11:32
PROVIDERS: PCP Nurse Practitioner Adult Health; Visit Provider Nurse Practitioner Adult Health
DX: Z12.5 Encounter for screening for malignant neoplasm of prostate (principal); I10 Essential (primary) hypertension; E55.9 Vitamin D deficiency, unspecified
CPT/HCPCS: 36415; 80053; 80061; 82306; 83735; 84153; G0103

== ENCOUNTER 2025-03-10 08:21 | Outpatient (CLI) | payer MEDICARE, SELFPAY ==
--- OUTSIDE RECORDS SUMMARY | 2025-02-05 08:45 | XMS_ITS | Clinical Summary ---
Author Organization [facility] [address] Address [address] [place] [id number] Care Team Providers Care Boom Stick Man Name Role Phone Lauri Swati NEHA Primary Care Provider [phone] Allergies No known active allergies Medications albuterol HFA (PROAIR HFA) 90 mcg/actuation inhaler Inhale 2 puffs every 4 (four) hours as needed for wheezing or shortness of breath. 8.5 g 8 Active olmesartan (BENICAR) 40 mg tablet Take 40 mg by mouth daily Active ergocalciferol (VITAMIN D) 50,000 unit capsule Take 1 capsule (50,000 Units total) by mouth once a week On Monday 9 Active fluticasone propionate (FLONASE) 50 mcg/actuation nasal spray Administer 2 sprays into each nostril daily as needed Active aluminum hydroxide-magnes ium trisilicate (GAVISCON) 80-14.2 mg tablet,chewable Take 2 tablets by mouth nightly Active calcium carbonate (OS-LUZ ELENA) 1,500 mg (600 mg elemental) tablet Take 1 tablet (1,500 mg total) by mouth 5 (five) times a week Active aspirin 325 mg tablet Take 81 mg by mouth daily Active budesonide-formo terol (SYMBICORT) 160-4.5 mcg/actuation inhaler Inhale 2 puffs 2 (two) times a day Rinse mouth with water after use. Do not swallow. Active latanoprost (XALATAN) 0.005 % ophthalmic solution Administer 1 drop into both eyes nightly Active atorvastatin (LIPITOR) 10 mg tablet Take 1 tablet (10 mg total) by mouth daily Active tadalafiL (CIALIS) 20 mg tablet Take 1 tablet (20 mg total) by mouth daily as needed for erectile dysfunction Active benzonatate (TESSALON) 200 mg capsule Take 200 mg by mouth 3 (three) times a day as needed for cough Active coenzyme Q10 10 mg capsule Take 1 capsule (10 mg total) by mouth daily Active acetaminophen (TYLENOL) 325 mg tablet Take 2 tablets (650 mg total) by mouth every 6 (six) hours as needed for pain Active losartan (COZAAR) 50 mg tablet Take 1 tablet (50 mg total) by mouth daily [address] (PROTONIX) 40 mg EC tablet Take 1 tablet (40 mg total) by mouth daily Active tamsulosin (FLOMAX) 0.4 mg extended release capsuleIndicatio ns:enlarged prostate Take 1 capsule (0.4 mg total) by mouth 2 (two) times a day 90 capsule 3 5 Active Active Problems Problem Noted Date Diagnosed Date Hepatic steatosis 10/09/2021 Hiatal hernia 09/06/2021 Gastroesophageal reflux disease without esophagi tis 09/06/2021 Ischemic colitis 08/20/2021 Hemorrhoid 08/20/2021 Primary hypertension 08/18/2021 Assessment & Plan (08/19/2021 1:44 PM CDT): Home medication: Metoprolol 50 mg, olmesartan 40 mg --> will continue home medication and monitor blood pressures Assessment & Plan (08/18/2021 12:36 PM CDT): Home medication: Metoprolol 50 mg, olmesartan 40 mg --> will continue home medication and monitor blood pressures Pulmonary nodule less than 6 mm in diameter with low risk for malignant neoplasm 08/18/2021 Assessment & Plan (08/19/2021 1:44 PM CDT): CT of abdomen pelvis with contrast that was done on 08/17: 0.6 cm of right middle lobe pulmonary nodule --> patient is a nonsmoker, therefore low risk Patients considered LOW RISK for lung cancer and a solitary nodule equal to or larger than 6 mm or equal to or less than 8 mm in diameter require follow-up CT at 6-12 months, then consider CT at 18-24 months. Assessment & Plan (08/18/2021 12:39 PM CDT): CT of abdomen pelvis with contrast that was done on 08/17: 0.6 cm of right middle lobe pulmonary nodule --> patient is a nonsmoker, therefore low risk Patients considered LOW RISK for lung cancer and a solitary nodule equal to or larger than 6 mm or equal to or less than 8 mm in diameter require follow-up CT at 6-12 months, then consider CT at 18-24 months. Left inguinal hernia 08/18/2021 Assessment & Plan (08/19/2021 1:44 PM CDT): CT abdomen pelvis with contrast done on 08/17: Left inguinal hernia containing a portion of the sigmoid colon without evidence of any complication at this time --> patient currently has no complaints, no signs of strangulation --> GI has been consulted Assessment & Plan (08/18/2021 12:41 PM CDT): CT abdomen pelvis with contrast done on 08/17: Left inguinal hernia containing a portion of the sigmoid colon without evidence of any complication at this time --> patient currently has no complaints, no signs of strangulation --> GI has been consulted Prostate hyperplasia without urinary obstruction 08/18/2021 Assessment & Plan (08/19/2021 1:44 PM CDT): CT abdomen pelvis with contrast done 08/17: Showed marked hypertrophy of the medial lobe of the prostate into the bladder base. PSA was normal --> patient not complaining of any urinary symptoms( hesitation, straining, dribbling) Assessment & Plan (08/18/2021 12:42 PM CDT): CT abdomen pelvis with contrast done 08/17: Showed marked hypertrophy of the medial lobe of the prostate into the bladder base. Will get a PSA --> patient not complaining of any urinary symptoms( hesitation, straining, dribbling) Gastrointestinal hemorrhage associated with anorectal source 08/17/2021 Assessment & Plan (08/19/2021 1:44 PM CDT): Patient presented with multiple bowel movements that has had bright red blood. In the ED guaiac exam was positive, and hemoglobin was stable GI was consulted for further workup Patient hemodynamically stable, CT of abdomen pelvis with contrast that was done on 08/17: Evident for mild esophageal wall thickening, left inguinal hernia containing portions of the sigmoid colon without evidence of complication at this time. Plan of endoscopy and colonoscopy today Results from endoscopy indicated no source of bleeding, says medium-size hiatal hernia, erythematous mucosa is red pre-pyloric region of the stomach which was biopsied Continue with Protonix -will continue to monitor H&H Pending colonoscopy results Assessment & Plan (08/18/2021 12:34 PM CDT): Patient presented with multiple bowel movements that had bright red blood. In the ED guaiac exam was positive, and hemoglobin was stable GI was consulted for further workup Patient hemodynamically stable, CT of abdomen pelvis with contrast that was done on 08/17: Evident for mild esophageal wall thickening, left inguinal hernia containing portions of the sigmoid colon without evidence of complication at this time. Will continue to monitor H&H --> continue with pantoprazole 40 mg Moderate persistent asthma with acute exacerbati on 04/24/2017 Assessment & Plan (08/19/2021 1:44 PM CDT): Currently stable on room air in no exacerbation Albuterol p.r.n. Continue with Symbicort b.i.d. Assessment & Plan (08/18/2021 12:35 PM CDT): Currently stable on room air in no exacerbation Albuterol p.r.n. Continue with Symbicort b.i.d. Surgical History Surgery Date Site/Laterality Comments HERNIA REPAIR COLONOSCOPY 08/15/2021 - 09/14/2021 Medical History Medical History Date Comments Asthma Hypertension Hiatal hernia History of transfusion Sleep apnea Motion sickness [facility] Ulcerative colitis GERD (gastroesophageal reflux disease) Peptic ulcer Headache Family History Medical History Relation Name Comments Heart disease Father Lung cancer Mother Relation Name Status Comments Father Mother Social History Tobacco Use Types Packs/Day Years Used Date Smoking Tobacco: Never Smokeless Tobacco: Never Tobacco Cessation:Counseling Given: Not Answered AUDIT-C Answer Date Recorded Q1: How often do you have a drink containing alc ohol? Monthly or less 02/21/2022 Q2: How many drinks containi ng alcohol do you have on a typical day when you are drinking? 1 or 2 02/21/2022 Q3: How often do you have si x or more drinks on one occasion? Never 02/21/2022 Sex and Gender Information Value Date Recorded Sex Assigned at Not on file Legal Sex Male 12:24 PM GUITAR REPAIRER Gender Identity Not on file Sexual Orientation Not on file Obstetrics History Last Filed Vital Signs Vital Sign Reading Time Taken Comments Blood Pressure 118/76 01/24/2023 3:59 PM CDT Pulse 82 01/24/2023 3:59 PM CDT Temperature 36.4 C (97.6 F) 04/26/2023 11:13 AM GUITAR REPAIRER Respiratory Rate 18 02/21/2022 8:55 AM GUITAR REPAIRER Oxygen Saturation 97% 01/24/2023 3:59 PM CDT Inhaled Oxygen Concentration - - Weight 92.1 kg (203 lb) 01/24/2023 3:59 PM CDT Height 170.2 cm (5' 7) 01/24/2023 3:59 PM CDT Body Mass Index 31.79 01/24/2023 3:59 PM CDT Plan of Treatment Health Maintenance Due Date Last Done Comments Depression Screening 1955 Hepatitis C Screening 1955 Hepatitis B Screening 08/03/1973 Well Visit 65+ 08/03/2020 Pneumococcal vaccine 65+ (2 of 2 - PPSV23, PCV20, or PCV21) 10/31/2022 09/05/2022 Fall Risk Assessment 02/21/2023 02/21/2022 Prostate Cancer Screening-PSA 08/19/2023 08/18/2021 Zoster Vaccine (3 of 3) 08/22/2023 06/27/2023, 04/04 Covid-19 Vaccine (6 - 2024-2 6 season) 2024 06/27/2023, 08/27/2021, 01/18/2021, Additional history exists Influenza Vaccine (#1) 2024 , 01/10/2020, 03/02/2019, Additional history exists Colon Cancer Screening-Colonoscopy 02/22/2032 02/21/2022, 08/19/2021 DTaP/Tdap/Td Vaccine (4 - Td or Tdap) 09/05/2032 09/05/2022, 11/02/2018, 01/14/2011 Colon Cancer Screening-CT Colonography Discontinued 02/21/2022, 08/19/2021 Colon Cancer Screening-DNA Stool Discontinued 02/22/20, 08/19/2021 Colon Cancer Screening-FIT Discontinued 02/21/2022, Colon Cancer Screening-Sigmoidoscopy Discontinued 02/21/2022, 08/19/2021 Medical Devices Implanted Type Area Zookeeper Device Identifier Shelf Expiration Date Model / Serial / Lot Medtronic Inc Progrip 15x9cm Self Rotating Equipment Engineer Rectangle Mesh Surgical Polyester Hernia [id number] - [id number] Implanted:Qty: 1 on 11/08/2021 by Fredo Mejía MD at [facility] Left: Abdomen Med[employer]onic [employer] 02/14/2026 [id number] / / [id number] Procedures Procedure Name Priority Date/Time Associated Diagnosis Comments COLONOSCOPY 02/21/2022 7:14 AM GUITAR REPAIRER PSA SCREEN Routine 08/18/2021 4:13 AM CDT from Last 3 Months or Most Recently Relevant to Health Maintenance Results * COLONOSCOPY (02/21/2022 7:14 AM GUITAR REPAIRER) Anatomical Region Laterality Modality Other Narrative Procedure Note Kuldeep Montanez MD - 02/21/2022 7:14 AM CST [facility] Patient Name: Tunde Roberts Procedure Date: 02/21/2022 7:14 AM Date of : 1955 Admit Type: Outpatient Age: 66 Gender: Male Attending MD: Kuldeep Montanez M.D. Room: [facility] ENDOSCOPY ROOM 1 Note Status: Finalized Patient Profile: This is a 66 year old male. Patient has severe ischemic colitis about 6 months ago. Follow-up colonoscopy for evaluation. His uncle had coloncancer Procedure: Colonoscopy Indications: Last colonoscopy within the past 6 months,Follow-up of colitis Referring MD: Kristen Sanchez M.D. Providers: Kuldeep Montanez M.D. Impression: - The entire examined colon is normal. - Internal hemorrhoids. - No specimens collected. Recommendation: - Repeat colonoscopy in 8 years for screeningpurposes. - Continue present medications. Medicines: Monitored Anesthesia Care Complications: No immediate complications. Estimated Blood Loss: Estimated blood loss: none. Procedure: Pre-Anesthesia Assessment: - Prior to the procedure, a History and Physicalwas performed, and patient medications and allergieswere reviewed. The patient's tolerance of previous anesthesia was also reviewed. The risks andbenefits of the procedure and the sedation options and risks were discussed with the patient. All questions were answered, and informed consent was obtained. Prior Anticoagulants: The patient has taken noanticoagulant or antiplatelet agents except for aspirin. ASAGrade Assessment: III - A patient with severe systemic disease. After reviewing the risks and benefits,the patient was deemed in satisfactory condition to undergo the procedure. The benefits, risks and alternatives of theprocedure and sedation were discussed and informed consentwas obtained. All questions were answered. Please referto the signed informed consent document in the medical record. The bowel preparation used was Miralax and bisacodyl tablets via split dose instruction. The scope was passed under direct vision. The Pediatric Colonoscope PCF-H190L [id number] was introducedthrough the anus and advanced to the the cecum, identifiedby appendiceal orifice and ileocecal valve. Thequality of the bowel preparation was excellent. Bowel prepwas administered using a split dose. Findings: The perianal and digital rectal examinations were normal. The cecum appeared normal. The colon (entire examined portion) appeared normal. No polyps and no mass lesions noted. No inflammatory changes noted Internal hemorrhoids were found during retroflexion. The hemorrhoids were medium-sized. Electronically signed by Kuldeep Montanez M.D. Kuldeep Montanez M.D. 02/21/2022 8:31:17 AM Number of Addenda: 0 Note Initiated On: 02/21/2022 7:14 AM Procedure Code(s): --- Professional --- 13319, Colonoscopy, flexible; diagnostic, including collection of specimen(s) by brushing or washing, when performed (separateprocedure) Diagnosis Code(s): --- Professional --- K64.8, Other hemorrhoids K52.9, Noninfective gastroenteritis and colitis, unspecified CPT copyright 2020 [employer] [place]. All rights reserved. The codes documented in this report are preliminary and upon cable cutter and swager reviewmay be revised to meet current compliance requirements. Recognized by the [place] [employer] for promoting quality in endoscopy Kuldeep Montanez MD ENDOSCOPY PROCEDURES Final Result * PSA screen (08/18/2021 4:13 AM CDT) PSA-Total 1.72 <=5.40 ng/mL [facility] ([place]) Comment: Interpretive Data AGE SEX REFERENCE INTERVAL 0 minutes-150 years Female None 0 minutes-49 years Male None 50-59 years Male 0-3.90 60-69 years Male 0-5.40 70-79 years Male 0-6.20 80-150 years Male 0-6.20 Current interpretive data last revised 2018. Testing performed by: [facility], [address] [place] [address], [place]., [address] Blood 08/18/2021 4:13 AM CDT 08/18/2021 7:28 PM CDT us Yasir Delong Jr., MD LAB BLOOD ORDERABLE S Final Result [facility] ([place]) [address] [facility] Department [place] [address] from Last 3 Months or Most Recently Relevant to Health Maintenance Insurance MEDICARE [facility] MEDICARE MEDICARE [facility] Advance Directives For more information, please contact: [phone] * Full Code (Latest Code Status on File) Date Activated Date Inactivated Comments 02/21/2022 7:16 AM 02/21/2022 1:16 PM * Full Code Date Activated Date Inactivated Comments 02/21/2022 7:16 AM 02/21/2022 7:16 AM * Full Code Date Activated Date Inactivated Comments 08/19/2021 12:19 PM 08/20/2021 6:36 PM * Full Code Date Activated Date Inactivated Comments 08/18/2021 12:41 AM 08/19/2021 12:19 PM Care Teams Boom Stick Man Relationship Specialty Start Date End Date Swati Carreon NP [facility] [place] [address] PCP - General Nurse Practitioner 05/29/24
--- OUTSIDE RECORDS SUMMARY | 2025-02-05 08:45 | XMS_ITS | Clinical Summary ---
Author Organization [facility] Address [address] [place] [address] Care Team Providers Care Hosiery Repairer Name Role Phone Unavailable Primary Care Provider [...] (1 of 2) 08/03/2005 INFLUENZA VACCINE (#1) 2024 RSV VACCINE (60+ or ) (1 - 1-dose 75+ series) 08/03/2030 Insurance RX [facility] Medicare Part D
--- OUTSIDE RECORDS SUMMARY | 2025-02-05 08:45 | XMS_ITS | Clinical Summary ---
Author Organization [facility] [employer] Address [address] [place] [address] Care Team Providers Care Block Bolter Mule Operator Name Role Phone Kristen Sanchez MD Primary Care Provider [phone] Source Comments [facility] [employer],non-owned Affiliates and Associated Physician Practices is amultiple site organization consisting of ambulatory clinics and hospital sitesin [place], [place], [place] and [place]. This disclosure is being madepursuant to the Care Everywhere program and may not contain all information available regarding this patient. Last updated 18.[facility] [employer] Allergies No known active allergies Medications * [...] on file Legal Sex Male 6:22 PM CLERICAL ADJUSTER Gender Identity Not on file Sexual Orientation [...] 10:10 AM CDT Height 170.2 cm (5' 7) 10/28/2017 10:10 AM CDT Body Mass Index [...] of 2) 08/03/2005 SCREENING FOR DIABETES 10/28/2017 DEPRESSION SCREENING 04/17/2024 COVID-19 VACCINE (1 - 2023-2 5 season) 2024 INFLUENZA VACCINE (#1) 2024 Respiratory Syncytial Virus (RSV) Vaccine Pt: [...] complete this topic Insurance RUPAL Care Teams Block Bolter Mule Operator Relationship Specialty Start Date End Date Kristen Sanchez MD [facility] [place] [id number] PCP - General Family Medicine 10/28/17
--- OUTSIDE RECORDS SUMMARY | 2025-02-05 08:45 | XMS_ITS | Clinical Summary ---
Author Organization [facility] Care Team Providers Care Culinary Internship Name Role Phone Unavailable Primary Care Provider Unavailabl e Social History Tobacco Use Types Packs/Day Years Used Date Smoking Tobacco: Never Assessed Sex and Gender Information Value Date Recorded Sex Assigned at Not on file Legal Sex Male 10:[address] DRILL OPERATOR Gender Identity Not on file Sexual Orientation Not on file Plan of Treatment Health Maintenance Due Date Last Done Comments Hepatitis C Virus (HCV) Screening 1955 Cologuard 08/03/2000 Colonoscopy 08/03/2000 Colorectal Cancer Screening 08/03/2000 Immunochemical Fecal Occult Blood 08/03/2000 Pneumococcal Immunization (50+ years) (1 of 1 - PCV) 08/03/2005 Zoster Immunization (2 of 3) 05/30/2016 04/04/2016 Influenza Immunization (#1) 2024 10/0 07/2020, 01/10/2020, 03/02/2019, Additional history exists SARS-COV-2 Immunization ( season) 2024 01/18/2021, 07/07/2020, 06/16/2020 Respiratory Syncytial Virus (RSV) Immunization (Adult) (1 - 1-dose 75+ series) 08/03/2030 DTaP/Tdap/Td Immunization Discontinued 11/02/2018, TdaP Immunization Completed 11/02/2018 Hepatitis B Immunization Aged Out No longer eligible based on patient's age to complete this topic Human Papillomavirus (HPV) Immunization Aged Out No longer eligible based on patient's age to complete this topic Meningococcal Immunization (ACWY) Aged Out No longer eligible based on patient's age to complete this topic Rotavirus Immunization Aged Out No lo nger eligible based on patient's age to complete this topic
--- OUTSIDE RECORDS SUMMARY | 2025-03-10 08:29 | XMS_ITS | Clinical Summary ---
Author Organization [facility] Address [address] [place] [address] Care Team Providers Care Philanthropy Officer Name Role Phone Unavailable Primary Care Provider [...] - 1-dose 75+ series) 08/03/2030 Insurance RX [facility] Medicare Part D
--- OUTSIDE RECORDS SUMMARY | 2025-03-10 08:29 | XMS_ITS | Clinical Summary ---
Author Organization [facility] [address] Address [address] [place] [address] Care Team Providers Care Farmworker Machine Name Role Phone Lauri Swati NEHA Primary Care Provider [phone] Allergies No known active allergies Medications albuterol [...] Motion sickness [facility] Ulcerative colitis GERD (gastroesophageal reflux disease) [...] on file Legal Sex Male 12:24 PM PUMP SERVICER HELPER Gender Identity Not on file Sexual Orientation Not on file Last Filed Vital Signs Vital Sign Reading Time Taken Comments Blood Pressure 118/76 01/24/2023 3:59 PM CDT Pulse 82 01/24/2023 3:59 PM CDT Temperature 36.4 C (97.6 F) 04/26/2023 11:13 AM PUMP SERVICER HELPER Respiratory Rate 18 02/21/2022 8:55 AM PUMP SERVICER HELPER Oxygen Saturation 97% 01/24/2023 3:59 PM CDT [...] 02/21/2022, 08/19/2021 Medical Devices Implanted Type Area Manager State Device Identifier Shelf Expiration Date Model / Serial / Lot Medtronic Inc Progrip 15x9cm Self Substance Abuse Clinician Rectangle Mesh Surgical Polyester Hernia [id number] - [id number] Implanted:Qty: 1 on 11/08/2021 by Fredo Mejía MD at [facility] Left: Abdomen [employer] 02/14/2026 [id number] / / [id number] Procedures Procedure Name Priority Date/Time Associated Diagnosis Comments COLONOSCOPY 02/21/2022 7:14 AM PUMP SERVICER HELPER PSA SCREEN Routine 08/18/2021 4:13 AM CDT from Last 3 Months or Most Recently Relevant to Health Maintenance Results * COLONOSCOPY (02/21/2022 7:14 AM PUMP SERVICER HELPER) Anatomical Region Laterality Modality Other Narrative Procedure Note Kuldeep Montanez MD - 02/21/2022 7:14 AM CST [facility] Patient Name: Tunde Roberts Procedure Date: 02/21/2022 7:14 AM Date of : 1955 Admit Type: Outpatient Age: 66 Gender: Male Attending MD: Kuldeep Montanez M.D. Room: [facility] ENDOSCOPY ROOM 1 Note Status: Finalized Patient [...] under direct vision. The Pediatric Colonoscope PCF-H190L [id number] was introducedthrough the anus and advanced to [...] 7:14 AM Procedure Code(s): --- Professional --- 03119, Colonoscopy, flexible; diagnostic, including collection of specimen(s) by brushing or washing, when performed (separateprocedure) Diagnosis Code(s): --- Professional --- K64.8, Other hemorrhoids K52.9, Noninfective gastroenteritis and colitis, unspecified CPT copyright 2020 [employer]. All rights reserved. The codes documented in this report are preliminary and upon data coder operator reviewmay be revised to meet current compliance requirements. Recognized by the [place] [employer] for promoting quality [...] data last revised 2018. Testing performed by: [facility], [address] [place] [address], [place]., [address] Blood 08/18/2021 4:13 AM CDT 08/18/2021 7:28 PM CDT us Yasir Delong Jr., MD LAB BLOOD ORDERABLE S Final Result [facility] ([place]) 1 [facility] Department [place] [address] from Last 3 Months or Most Recently Relevant to Health Maintenance Insurance [facility]ICARE [facility] MEDICARE MEDICARE [facility] Advance Directives For more information, please contact: [phone] * Full Code (Latest Code Status on File) Date Activated Date Inactivated Comments 02/21/2022 7:16 AM 02/21/2022 1:16 PM * Full Code Date Activated Date Inactivated Comments 02/21/2022 7:16 AM 02/21/2022 7:16 AM * Full Code Date Activated Date Inactivated Comments 08/19/2021 12:19 PM 08/20/2021 6:36 PM * Full Code Date Activated Date Inactivated Comments 08/18/2021 12:41 AM 08/19/2021 12:19 PM Care Teams Farmworker Machine Relationship Specialty Start Date End Date Swati Carreon NP [address] [place] [place] [address] PCP - General Nurse Practitioner 05/29/24
--- OUTSIDE RECORDS SUMMARY | 2025-03-10 08:29 | XMS_ITS | Clinical Summary ---
Author Organization [facility] Address [address] [place] [address] Care Team Providers Care Claims Correspondence Clerk Name Role Phone Kristen Sanchez MD Primary Care Provider [phone] Source Comments [facility],non-owned Affiliates and Associated Physician Practices is amultiple site organization consisting of ambulatory clinics and hospital sitesin [place], [place], [place] and [place]. This disclosure is being madepursuant to the Care Everywhere program and may not contain all information available regarding this patient. Last updated 18.[facility] Allergies No known active allergies Medications * [...] on file Legal Sex Male 6:22 PM [employer]PER[employer] Gender Identity Not on file Sexual Orientation [...] DEPRESSION SCREENING 04/17/2024 COVID-19 VACCINE (1 - 2024-2 6 season) 2024 INFLUENZA VACCINE (#1) 2024 Respiratory [...] complete this topic Insurance [employer] Care Teams Claims Correspondence Clerk Relationship Specialty Start Date End Date Kristen Sanchez MD [facility] [place] [phone] PCP - General Family Medicine 10/28/17
--- OUTSIDE RECORDS SUMMARY | 2025-03-10 08:29 | XMS_ITS | Clinical Summary ---
Author Organization [facility] Care Team Providers Care Advertising Strategist Name Role Phone Unavailable Primary Care Provider Unavailabl e Social History Tobacco Use Types Packs/Day Years Used Date Smoking Tobacco: Never Assessed Sex and Gender Information Value Date Recorded Sex Assigned at Not on file Legal Sex Male 10:49 AM LUMBER CHAIN OFF[employer] Gender Identity Not on file Sexual Orientation [...]
--- OUTSIDE RECORDS SUMMARY | 2025-03-10 08:29 | XMS_ITS | Data Portability ---
Author Organization [facility] [employer], Main Office Address [address] [place] [address] Care Team Providers Care Vice President Business & Corporate Development Name Role Phone KRISTEN APARICIO Primary Care Provider [phone] KRISTEN APARICIO Referring Provider [phone] Assessment No assessment recorded. Plan of Treatment Reminders Order Date Submit Date Provider Last Modified By Organization Details Last Modified Time Details Appointments None recorded. Lab PSA, serum or plasma 2022 023 [email or web address] Not available 09:57:57 lipid panel, serum 2022 023 LO Not available 13:57:59 CMP, serum or plasma 2022 023 LO Not available 13:58:06 Referral None recorded. Procedures None recorded. Surgeries None recorded. Imaging XR, foot, 3 or more view 2022 023 [email or web address] [facility] Yung Lindsey, [address] [facility] [address], [place], [address], 3 14:59:13 Medication Orders olmesartan 40 mg-hydroch lorothiazi de 12.5 mg tablet 2022 023 ATHENAFAX [facility] [address], [address], [place], [place], [id number], 3 10:20:38 tadalafil 20 mg tablet 2022 023 [facility], [address] [place], [address], 11:15:47 benzonatat e 200 mg capsule 2022 023 [facility] [place], [address], 11:15:47 Patient TargetsNo targets recorded. Patient Instructions Encounter Date Encounter Id Patient Instructions Last Modified By Organization Details Last Modified Time 08/16/2022 [id number] Needs a MWV. Not available 0 08/16/2022 11:17:44 09/05/2022 [id number] dementia rating scale-2* Not available 09/05/2022 09:20:42 alcohol misuse* Not available 09/05/2022 09:21:06 depression screening* Not available 09/05/2022 09:21:11 multi-dimensiona l health assessment questionnaire* Not available 09/05/2022 09:20:34 Personalized a lth Plan and Screening Recommendations Advance Directives - Do you have one? No Patient requested information. Advance Directives - Do we have your advance directive on file in your health record? Primary Prevention/Interven tion (prevents or decreases the chance of common diseases from occurring) Smoking Risk: Non Smoker I have no recommendations. Alcohol Misuse Screening: Negative I have no recommendations. Weight: Overweight try to lose 5% of your body weight Physical activity: Need more exercise/physical activity minimum of 20-30 minutes activity that causes mild breathlessness/day Nutrition: Good Fall Risk (screened today): Low Vaccines Pneumococcal: Recommended today Influenza: Your next one in the fall of this year Chronic Disease Risks Stroke: Intermediate Risk Continue current treatment plan Heart Attack: Intermediate Risk Continue current treatment plan Clogging of the Arteries: Intermediate Risk Continue current treatment plan Diabetes: Low Risk I have no recommendations Secondary Prevention/Interven tion (detects treatable diseases before they may cause symptoms, disability, or ) Prostate Cancer Screening: PSA recommended No digital rectal exam screening necessary Colon Cancer Screening: Cologuard (DNA stool test) In: 08/21/2023 Date Screening Last Performed: Cologuard negative 08/19/20 Eye Disease Screening: Yearly visits Dementia Risk: Low I have no recommendations Depression Screening: Negative Active diagnosis, Continue current treatment plan [email or web address] Not available 09/02/2022 15:54:48 01/09/2023 [id number] peroneal tendon strain: rehab exercises [email or web address] Not available 01/09/2023 14:52:11 Reason for Referral None Reported. Results Created Date Observation Date Name Description Value Unit Range Abnormal Flag Note LastModifiedBy Organization Detail LastModifiedTime 02/10/2002/09/2022 rapid flu (A+B) Flu A negati ve Not Available [address], [place], [address], 02/09/2022 16:06:30 02/10/20 22 02/09/2022 rapid flu (A+B) Flu B negati ve Not Available [address], [place], [address], 02/09/2022 16:06:30 09/23/19 23 09/22/2022 LIPID PANEL cholesterol 207 mg/dL 140-19 9 high NIH RADHA NSUS RECOM MENDA TION FOR CONG STERO L: ADULT CHILD LOW RISK: <200 <170 BORDE RLINE : <200- 239 ----- HIGH RISK: >240 >200 Not Available [facility] (Lab) [address] [place], [address], 09/22/2022 13:57:59 09/23/19 23 09/22/2022 LIPID PANEL triglyceride s 327 mg/dL 0-150 high NIH RADHA NSUS REPOR T RECOM MENDA TION FOR TRIGL YCERI HERMELINDA: ADULT CHILD LOW RISK: <150 ----- BODER LINE: 150-1 99 ----- HIGH RISK: >200 ----- Not Available [facility] (Lab) [address] [place], [address], 09/22/2022 13:57:59 09/23/19 23 09/22/2022 LIPID PANEL HDL cholesterol 36 mg/dL 40- low Not Available [facility] (Lab) [address] [place], [address], 09/22/2022 13:57:59 09/23/19 23 09/22/2022 LIPID PANEL LDL cholesterol, calculated 106 mg/dL 0-130 NIH RADHA NSUS REPOR T RECOM MENDA TIONS FOR LDL: ADULT CHILD LOW RISK <130 <110 (OPTI MAL LDL) <100 ----- BORDE RLINE : 130-1 59 ----- HIGH RISK: >160 >130 A TRIGL YCERI DE RESUL T >400 INVAL IDATE S THE CALCU LATIO N FOR LDL FRACT IONAT ION - THE LDL RESUL T WILL NOT BE REPOR LEN. Not Available [facility] (Lab) [address] [place], [address], 09/22/2022 13:57:59 09/23/19 23 09/22/2022 COMPR EHENS NOELLE METAB OLIC PANEL sodium 134 mmol/ L 137-14 5 low Not Available [facility] (Lab) [address] [place], [address], 09/22/2022 13:58:05 09/23/19 23 09/22/2022 COMPR EHENS NOELLE METAB OLIC PANEL potassium 4.6 mmol/ L 3.5-5. 1 Not Available [facility] (Lab) [address] [place], [address], 09/22/2022 13:58:05 09/23/19 23 09/22/2022 COMPR EHENS NOELLE METAB OLIC PANEL chloride 98 mmol/ L 98-107 Not Available [facility] (Lab) [address] [place], [address], 09/22/2022 13:58:05 09/23/19 23 09/22/2022 COMPR EHENS NOELLE METAB OLIC PANEL carbon dioxide 23 mmol/ L 22-30 Not Available [facility] (Lab) [address] [place], [address], 09/22/2022 13:58:05 09/23/19 23 09/22/2022 COMPR EHENS NOELLE METAB OLIC PANEL anion gap 17.6 mmol/ L 14-22 Not Available [facility] (Lab) [address] [place], [address], 09/22/2022 13:58:05 09/23/19 23 09/22/2022 COMPR EHENS NOELLE METAB OLIC PANEL glucose 88 mg/dL 70-99 Not Available [facility] (Lab) [address] [place], [address], 09/22/2022 13:58:05 09/23/19 23 09/22/2022 COMPR EHENS NOELLE METAB OLIC PANEL BUN 15 mg/dL 8-19 Not Available [facility] (Lab) [address] [place], [address], 09/22/2022 13:58:05 09/23/19 23 09/22/2022 COMPR EHENS NOELLE METAB OLIC PANEL creatinine 1.01 mg/dL 0.66-1 .25 Not Available [facility] (Lab) [address] [place], [address], 09/22/2022 13:58:05 09/23/19 23 09/22/2022 COMPR EHENS NOELLE METAB OLIC PANEL GFR >60 Refer ence Range : [place] ge GFR Healt hy Adult : >60 mL/mi n/1.7 3 m2 Chron ic Kidne y Disea se: 15-60 mL/mi n/1.7 3 m2 Kidne y Failu re: <15/m L/min /1.73 m2 www.n iddk. nih.g ov The MDRD study equat ion has not been valid ated in child yesenia <18 years of age; pregn ant women ; the elder ly >85 years of age; or in some racia l or ethni c subgr oups, such as Hispa nics. Outsi de the valid ated cele eters , estim ated GFR is less accur ate, requi ring clini mary judgm ent on a case- by-ca se basis . Clini mary inter preta tion for other races and ages must be made by the clini [place]. The MDRD study equat ion has not been valid ated for the evalu ation of serum creat inine relat ed to nutri alba l statu s or medic ation usage . For perso ns <18 years of age, a pedia tric GFR calcu lator is avail able on the [facility] websi te: https ://dao bedoya.robe macedo.o [place]/pr ofess ional s/kdo qi/gf r_cal culat or Not Available [facility] (Lab) [address] [place], [address], 09/22/2022 13:58:05 09/23/19 23 09/22/2022 COMPR EHENS NOELLE METAB OLIC PANEL alkaline phosphatase 61 U/L 38-126 Not Available [facility] (Lab) [address] [place], [address], 09/22/2022 13:58:05 09/23/19 23 09/22/2022 COMPR EHENS NOELLE METAB OLIC PANEL alanine aminotransfe rase 31 U/L 0-50 Not Available [facility] (Lab) [address] [place], [address], 09/22/2022 13:58:05 09/23/19 23 09/22/2022 COMPR EHENS NOELLE METAB OLIC PANEL aspartate aminotransfe rase 34 U/L 15-46 Not Available [facility] (Lab) [address] [place], [address], 09/22/2022 13:58:05 09/23/19 23 09/22/2022 COMPR EHENS NOELLE METAB OLIC PANEL bilirubin, total 0.60 mg/dL 0.20-1 .30 Not Available [facility] (Lab) [address] [place], [address], 09/22/2022 13:58:05 09/23/19 23 09/22/2022 COMPR EHENS NOELLE METAB OLIC PANEL calcium 9.6 mg/dL 8.4-10 .2 Not Available [facility] (Lab) [address] [place], [address], 09/22/2022 13:58:05 09/23/19 23 09/22/2022 COMPR EHENS NOELLE METAB OLIC PANEL total protein 7.7 g/dL 6.3-8. 2 Not Available [facility] (Lab) [address] [place], [address], 09/22/2022 13:58:05 09/23/19 23 09/22/2022 COMPR EHENS NOELLE METAB OLIC PANEL albumin 4.3 g/dL 3.0-4. 4 Not Available [facility] (Lab) [address] [place], [address], 09/22/2022 13:58:05 09/23/19 23 09/22/2022 COMPR EHENS NOELLE METAB OLIC PANEL globulin 3.4 g/dL 2.6-4. 2 Not Available [facility] (Lab) [address] [place], [address], 09/22/2022 13:58:05 09/23/19 23 09/22/2022 COMPR EHENS NOELLE METAB OLIC PANEL A/G ratio 1.3 ratio 1.0-2. 0 Not Available [facility] (Lab) [address] [place], [address], 09/22/2022 13:58:05 09/23/19 23 09/22/2022 PSA SCREE N PSA medicare screen 2.24 NG/mL 0.00-4 .00 Not Available [facility] (Lab) [address] [place], [address], 09/22/2022 14:24:30 01/10/20 XR, foot, 3 or more view No observ ation record ed. [email or web address] [facility] Podiatry Yung Lindsey [address], [place], [address], 01/09/2023 14:59:07 01/14/20 23 01/13/2023 XR, chest , 2 view No observ ation record ed. [address] [facility] [address], [place], [address], 01/17/2023 09:21:30 01/15/20 23 01/14/2023 , echo ardio gram No observ ation record ed. [place] [id number] [facility] [address], [place], [address], 01/17/2023 09:23:12 01/25/20 23 01/23/2023 cardi ac stres s test No observ ation record ed. [email or web address] [facility] [address], [place], [address], 02/01/2023 12:15:05 Result Notes None recorded. Problems Name Problem SNOMED Code Status Onset Date Resolution Date Notes Provider Name and Address Organization Details Recorded Time Nocturia 768337311 Active Not Available [facility] 4 11:29:10 Asthma 093078072 Active Not Available [facility] 4 11:29:10 Pain 75764426 Active Not Available [facility] 4 11:29:10 Gastroesop hageal reflux disease 131194340 Active Not Available [facility] 4 11:29:10 Headache 26911289 Active Not Available [facility] 4 11:29:10 Basal cell carcinoma of skin 874856776 Active Not Available [facility] 4 11:29:11 Nasal infection 597401226 Active Not Available [facility] 4 11:29:11 Dehydratio n 53237834 Active Not Available [facility] 4 11:29:11 Vitamin D deficiency 44977484 Active Not Available [facility] 4 11:29:11 Depressive disorder 38035371 Active Not Available [facility] 4 11:29:11 Sinusitis 44951097 Active Not Available [facility] 4 11:29:11 Hypertensi ve disorder 36527982 Active Not Available [facility] 4 11:29:11 Herpes zoster 8149457 Active Not Available [facility] 4 11:29:11 Hyperlipid emia 77502807 Active Not Available [facility] 4 11:29:11 Essential hypertensi on 64834730 Active Not Available [facility] 4 11:29:11 Sleep apnea 79773335 Active Not Available [facility] 4 11:29:11 Obstructiv e sleep apnea syndrome 80182789 Active Not Available [facility] 4 11:29:11 Fatigue 06827978 Active Not Available [facility] 4 11:29:11 Tinea corporis 65569588 Active Not Available [facility] 4 11:29:11 Body mass index 30+ - obesity 618793907 Active 2017 Not Available [facility] 4 11:29:10 Edema of lower extremity 865499298 Active 2022 Not Available [facility] 4 11:29:10 Erectile dysfunctio n 479888192 Active 2022 Not Available [facility] 4 11:29:11 Chronic cough 44859491 Active 2022 Not Available [facility] 4 11:29:11 Adverse reaction to drug 40903379 Active 2022 Not Available [facility] 4 11:29:11 Pain in right foot 2112711441129 07 Active 2022 Not Available [facility] 4 11:29:11 Pain of right knee joint 5308754135139 00 Active 2022 Not Available [facility] 4 11:29:11 Peroneal tendinitis of right lower limb 7425896946851 09 Active 2022 Not Available [facility] 4 11:29:11 Problem Notes None recorded. Procedures Surgical History Date Name Laterality Status Provider Name and Address Organization Details Recorded Time 3 Medicare Wellness CPT Code, Welcome completed Oralia Gaviria RN [facility] 09/02/2022 15:50:30 3 Advanced Care Planning completed Oralia Gaviria RN [facility] 09/02/2022 15:52:02 hernia repair completed Shelly Jean Baptiste [employer] 01/09/2023 11:12:41 Imaging Results None recorded. Procedure Notes None recorded. Medical Equipment None Reported. Allergies Allergen ID Allergen Name Allergen Category Reaction Reaction Severity Criticality Documentation Date Start Date Code Code System Note Provider Name and Address Organization Details Recorded Time 51813 Trilipix medicatio n Not available Not available Not available 06/15/2022 56139 4 RxNorm incre ased appet ite, gets weak and shaky Not Available [facility] 3 06:08:00 84921 Lovaza medicatio n Not available Not available Not available 06/15/2022 05460 6 RxNorm incre ases appet ite Not Available [facility] 3 06:08:00 68724 gemfibroz il medicatio n Not available Not available Not available 06/15/2022 4719 RxNorm weak and shaky , incre ase appet ite Not Available [facility] 3 06:08:00 18422 tree and shrub pollen environme nt,medica tion Not available Not available Not available 01/09/2023 Shelly beltran [facility] 3 11:09:36 53227 mold extract environme nt Not available Not available Not available 01/09/2023 89247 8 RxNorm Shelly beltran [facility] 3 11:09:43 Medications Name Sig Start Date Stop Date Status Note LastModified by Organization Details LastModified Time latanopro st 0.005 % eye drops active Not Available Not Available Not Available hydrocodo ne 7.5 mg-ibupro fen 200 mg tablet active Not Available Not Available No t Available nystatin 100,000 unit/mL oral suspensio n Take 5 mL 4 times a day by oral route as directed for 10 days. active Not Available Not Available No t Available triamcino lone acetonide 0.5 % topical cream Apply 0.25 g twice a day by topical route. active Not Available Not Available No t Available atorvasta tin 10 mg tablet Take 1 tablet every day by oral route. active Not Available Not Available No t Available aspirin 325 mg tablet Take 1 tablet every day by oral route. 2020 active Not Available Not Available Not Avai lable benzonata te 200 mg capsule Take 1 capsule 3 times a day by oral route as needed. 2022 active Not Available Not Available Not Avai lable metoprolo l succinate ER 50 mg tablet,ex tended release 24 hr TAKE 1 TABLET DAILY active Not Available Not Available No t Available valacyclo vir 1 gram tablet active Not Available Not Available Not Available tolterodi ne ER 4 mg capsule,e xtended release 24 hr Take 1 capsule every day by oral route. 12/03 completed Not Available Not Available Not Available fluconazo le 200 mg tablet Take 1 tablet every day by oral route for 7 days. 12/26 completed Not Available Not Available Not Available meloxicam 15 mg tablet 01/10 completed Not Available Not Available Not Available famotidin e 40 mg tablet TAKE 1 TABLET AT BEDTIME active Not Available Not Available No t Available Medrol (Syed) 4 mg tablets in a dose pack use as directed 08/16 completed Not Available Not Available Not Available prednison e 20 mg tablet 03/18 completed Not Available Not Available Not Available Mobic 7.5 mg tablet Take 1 tablet twice a day by oral route with meals for 30 days. 09/08 completed Not Available Not Available Not Available Zithromax Z-Syed 250 mg tablet TAKE 2 TABLETS (500 MG) BY ORAL ROUTE ONCE DAILY FOR 1 DAY THEN 1 TABLET (250 MG) BY ORAL ROUTE ONCE DAILY FOR 4 DAYS 08/16 completed Not Available Not Available Not Available metronida zole 500 mg tablet TAKE ONE TABLET BY MOUTH THREE TIMES DAILY FOR 18 DOSES 08/16 completed Not Available Not Available Not Available valacyclo vir 500 mg tablet Take 2 tablets every 8 hours by oral route as directed for 7 days. active Not Available Not Available No t Available sulfameth oxazole 800 mg-trimet hoprim 160 mg tablet TAKE 1 TABLET BY MOUTH TWICE DAILY FOR 7 DAYS 08/16 completed Not Available Not Available Not Available omeprazol e 40 mg capsule,d elayed release active Not Available Not Available Not Available tramadol 50 mg tablet TK ONE T PO Q 6 H WITH MEALS FOR 30 DAYS active Not Available Not Available No t Available losartan 100 mg-hydroc hlorothia zide 25 mg tablet TAKE 1 TABLET DAILY 11/08 completed Not Available Not Available Not Available oxycodone -acetamin ophen 5 mg-325 mg tablet 08/16 completed Not Available Not Available Not Available amoxicill in 875 mg tablet Take 1 tablet every 12 hours by oral route with meals for 10 days. active Not Available Not Available No t Available famotidin e 20 mg tablet Take 2 tablets every day by oral route at bedtime. 09/22 completed Not Available Not Available Not Available tolterodi ne 2 mg tablet TAKE 1 TABLET TWICE A DAY 08/16 completed Not Available Not Available Not Available amitripty line 25 mg tablet Take 1 tablet every day by oral route at bedtime. active Not Available Not Available No t Available tamsulosi n 0.4 mg capsule Take 1 capsule every day by oral route. active Not Available Not Available No t Available gemfibroz il 600 mg tablet Take by oral route for 90 days. active Makes weak and shaky Not Available Not Available Not Available cephalexi n 500 mg capsule Take 1 capsule 3 times a day by oral route. active Not Available Not Available No t Available pantopraz ole 40 mg tablet,de layed release TAKE ONE TABLET BY MOUTH DAILY active Not Available Not Available No t Available hydrochlo rothiazid e 12.5 mg capsule Take 1 capsule every day by oral route. 11/20 completed Not Available Not Available Not Available isomethep tene-dich loralphen -acetamin ophen 65 mg-100 mg-325 mg capsule TAKE 2 CAPSULES BY ORAL ROUTE TO START, THEN 1 CAPSULE EVERY HOUR UNTIL RELIEF, NOT TO EXCEED 5 CAPSULES WITHIN A 12 HOUR PERIOD 09/22 completed Not Available Not Available Not Available mupirocin 2 % topical ointment active Not Available Not Available Not Available ergocalci ferol (vitamin D2) 1,250 mcg (50,000 unit) capsule TAKE 1 CAPSULE WEEKLY active Not Available Not Available No t Available levofloxa chen 500 mg tablet 08/16 completed Not Available Not Available Not Available albuterol sulfate HFA 90 mcg/actua tion aerosol inhaler Inhale 2 puffs every 4 hours by inhalati on route as needed. active Not Available Not Available No t Available losartan 50 mg-hydroc hlorothia zide 12.5 mg tablet TAKE 1 TABLET DAILY active Not Available Not Available No t Available ketoconaz ole 2 % topical cream active Not Available Not Available Not Available losartan 100 mg tablet TAKE 1 TABLET DAILY 11/20 completed Not Available Not Available Not Available fluticaso ne propionat e 50 mcg/actua tion nasal spray,nohemy pension USE 2 SPRAYS IN EACH NOSTRIL EVERY MORNING active Not Available Not Available No t Available sertralin e 50 mg tablet Take 1 tablet every day by oral route. active Not Available Not Available No t Available Bactroban Nasal 2 % ointment Take by nasal route 1/2 A TUBE TWICE A DAY FOR 5 DAYS. active Not Available Not Available No t Available amoxicill in 875 mg-potass ium clavulana te 125 mg tablet TAKE 1 TABLET BY MOUTH EVERY 12 HOURS FOR 10 DAYS 08/16 completed Not Available Not Available Not Available hydroxyzi ne pamoate 25 mg capsule TAKE 1 CAPSULE BY MOUTH FOUR TIMES DAILY NEEDED active Not Available Not Available No t Available olmesarta n 40 mg tablet TAKE 1 TABLET DAILY active Not Available Not Available No t Available escitalop alen 10 mg tablet Take 1 tablet every day by oral route for 90 days. active pt. taking occasion al Not Available Not Available Not Available Zetia 10 mg tablet active Not Available Not Available No t Available Fish Oil 1,000 mg capsule one po daily 03/18 completed Not Available Not Available Not Available olmesarta n 40 mg-hydroc hlorothia zide 12.5 mg tablet Take 1 tablet every day by oral route. active Not Available Not Available No t Available rosuvasta tin 10 mg tablet TAKE 1 TABLET DAILY active Not Available Not Available No t Available tadalafil 20 mg tablet Take 1 tablet every day by oral route as needed. active Not Available Not Available No t Available Tricor 145 mg tablet Take 1 tablet every day by oral route for 90 days. active Not Available Not Available No t Available Boostrix Tdap 2.5 Lf unit-8 mcg-5 Lf/0.5 mL intramusc ular syringe active Not Available Not Available Not Available Reading Saline Gel nasal swab Take 1 swab every day by nasal route as needed. 09/22 completed Not Available Not Available Not Available Asmanex Twisthale r 220 mcg/actua tion(30 doses) breath activated inhalr 11/20 completed Not Available Not Available Not Available Asmanex Twisthale r 220 mcg/actua tion(60 doses) breath activated inhalr Inhale 1 puff every day by inhalati on route. 08/14 completed Not Available Not Available Not Available Fish Oil active Not Available Not Avai lable Not Available Calcium 600 2020 active Not Available Not Available Not Avai lable Antihista mine 09/18 completed Not Available Not Available Not Available Claritin active Not Available Not Avai lable Not Available Fluticaso ne Propionat e (Nasal) 09/22 completed Not Available Not Available Not Available Tylenol active Not Available Not Avail able Not Available Zyrtec 2020 active Not Available Not Available Not Avai lable Gaviscon 2 tablets [facility] 2013 active Not Available Not Available Not Avai lable isomethep tene mucate (bulk) active Not Available Not Available Not Available omega-3 fatty acids-fis h oil 340 mg-1,000 mg capsule one po daily 09/22 completed Not Available Not Available Not Available Symbicort 160 mcg-4.5 mcg/actua tion HFA aerosol inhaler USE 2 INHALATI ONS TWICE A DAY active Not Available Not Available No t Available Lovaza 1 gram capsule active Not Available Not Available Not Available Bystolic 10 mg tablet Take 1 tablet every day by oral route. 11/20 completed Not Available Not Available Not Available Bystolic 5 mg tablet Take 1 tablet every day by oral route. 05/02 completed Not Available Not Available Not Available M-M-R II (PF) 1,000-12, 500 TCID50/0. 5 mL subcutane ous solution ADM 0.5 ML SC UTD 11/20 completed Not Available Not Available Not Available Align (B. is) 2020 active Not Available Not Available Not Avai lable Lumigan 0.01 % eye drops active Not Available Not Available No t Available Vascepa 1 gram capsule TAKE TWO CAPSULES BY MOUTH TWICE DAILY active Not Available Not Available No t Available Nasacort 55 mcg nasal spray aerosol Take 2 sprays every day by nasal route as needed. 03/29 completed Not Available Not Available Not Available Fluarix Quad (PF) 60 mcg (15 mcg x 4)/0.5 mL IM syringe ADM 0.5ML IM UTD active Not Available Not Available No t Available Emgality Pen 120 mg/mL subcutane ous pen injector 240 mg loading dose than 120 mg monthly to inject SQ active Not Available Not Available No t Available Afluria Qd (36 mos up)(PF)60 mcg (15 mcg x4)/0.5 mL IM syringe active Not Available Not Available Not Available [facility] ODT 75 mg disintegr ating tablet 1 tab at onset of headache 12/03 completed Not Available Not Available Not Available ID NOW COVID-19 Test Kit TEST DIRECTED TODAY 08/16 completed Not Available Not Available Not Available Afluria Qd (36 mos up)(PF)60 mcg (15 mcg x4)/0.5 mL IM syringe ADM 0.5ML IM UTD active Not Available Not Available No t Available Vitals Date Recorded Body height Body mass index (BMI) Body weight Body temperature Heart rate Oxygen saturation Systolic And Diastolic Provider Name and Address Organization Details Last Updated DateTime 3 170.18 cm 32.3 kg/m2 42557.0 3 g 98.5 [degF] 72 /min 98 % 140/84 mm[Hg] ELLIOTT Velasquez [employer]ito [employer] [facility] 3 11:05:09 Date Recorded Body height Body mass index (BMI) Body weight Body temperature Heart rate Oxygen saturation Systolic And Diastolic Provider Name and Address Organization Details Last Updated DateTime 3 170.18 cm 32.3 kg/m2 72037.0 3 g 97.9 [degF] 70 /min 98 % 144/90 mm[Hg] ELLIOTT Velasquez [employer] 3 09:00:20 Date Recorded Body height Body temperature Body weight Heart rate Oxygen saturation Systolic And Diastolic Provider Name and Address Organization Details Last Updated DateTime 3 170.18 cm 97.6 [degF] 84195.0 3 g 76 /min 98 % 142/88 mm[Hg] Swati Waller RN [employer] 3 11:29:03 Date Recorded Body height Body mass index (BMI) Body weight Heart rate Respiratory rate Oxygen saturation Systolic And Diastolic Provider Name and Address Organization Details Last Updated DateTime 3 170.18 cm 32.3 kg/m2 32493.0 3 g 68 /min 14 /min 98 % 139/90 mm[Hg] Shelly Jean Baptiste [employer] [facility] 3 11:21:09 Social History Question Answer Notes LastModified by Organizat ion Details LastModified Time Tobacco Smoking Status Never Smoker Ynes bletran [employer] 08/16/2022 10:59:22 What Is Your Level Of Caffeine Consumption? Heavy [id number] Information not available 06/15/2022 In The 14 Days Before Symptom Onset, Have You Had Close Contact With A Laboratory-confir med COVID-19 While That Case Was Ill? No [email or web address] Information not available 08/16/2022 In The 14 Days Before Symptom Onset, Have You Had Close Contact With A Person Who Is Under Investigation For COVID-19 While That Person Was Ill? No [email or web address] Information not available 08/16/2022 What Type Of Diet Are You Following? REGULAR [id number] Information not available 06/15/2022 What Was The Date Of Your Most Recent Tobacco Screening? 01/09/2023 [email or web address] Information not available 01/09/2023 Have You Ever Been Counseled For Unhealthy Alcohol Use? No [email or web address] Information not available 08/16/2022 Has Tobacco Cessation Counseling Been Provided? No [email or web address] Information not available 08/16/2022 Have You Recently Traveled Abroad? Yes Patient Went Out Of Town 9 Days Ago [email or web address] Information not available 08/16/2022 Sex: Unknown Functional Status Question Answer Note LastModified by Organizat ion Details LastModified Time Do you use any illicit or recreational drugs? No [email or web address] Information not available 08/16/2022 Do you or have you ever used any other forms of tobacco or nicotine? No [email or web address] Information not available 08/16/2022 What is your level of alcohol consumption? 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 Occasional [id number] Information not available 06/15/2022 Mental Status None recorded. Family History Relationship Description Onset Age of this Age Resolved Age Notes LastModified by Organization Details LastModified Time Mother Hypertensive disorder [id number] Not available 06/15/2022 05:56:46 Mother Family history of malignant neoplasm [email or web address] Not available 08/16 10:59:21 Notes:Patient stated his fat her , Father had cancer Medical History Condition Response GASTROINTESTINAL BLEEDING Y ULCERS Y HEADACHES/MIGRAINES Y OBESITY Y ASTHMA Y SLEEP APNEA Y URINARY/BLADDER/KIDNEY PROBLEMS Y PROSTATE Y HEARTBURN / REFLUX Y HYPERTENSION Y HIGH CHOLESTEROL / HYPERLIPIDEMIA Y Immunizations Vaccine Type Date Status Note Provider Nam e and Address Organization Details Recorded Time zoster recombinant 4 completed BETTY Aragon, [facility] [employer] 06/28/2023 16:43:31 COVID-19, mRNA, LNP-S, PF, 30 mcg/0.3 mL dose 4 completed BETTY Aragon, [employer] [facility] 06/28/2023 16:43:51 Influenza, split virus, quadrivalent, preservative 9 completed Not Available [facility] 09/27/2022 16:15:32 MMRV 9 completed Not Available [facility] 09/27/2022 16:15:32 DTaP 1 completed Not Available [facility] 09/27/2022 16:15:32 zoster live 6 completed Not Available [facility] 09/27/2022 16:15:32 Influenza, split virus, quadrivalent, preservative 6 completed Not Available [facility] 09/27/2022 16:15:32 Influenza, split virus, trivalent, preservative 5 completed Not Available [facility] 09/27/2022 16:15:32 Pneumococcal conjugate PCV 13 3 completed ELLIOTT Velasquez, [employer] 09/05/2022 10:58:37 Tdap 3 completed ELLIOTT Velasquez, [employer] 09/05/2022 10:58:38 Past Encounters Encounter ID Performer Location Encounter Start Date Encounter Closed Date Diagnosis/Indication Diagnosis SNOMED-CT Code Diagnosis ICD10 Code Diagnosis IMO Codes Diagnosis Note [id number] [facility] [place] [address] [place] [address] 12/03/2020 00:00:00 12/03/2020 23:05:19 [id number] Kristen Sanchez MD [facility] [place] [facility] [place] [address] 03/18/2021 00:00:00 03/18/2021 19:56:24 [id number] Kristen Sanchez MD [facility] [place] [facility] [place] [address] 07/09/2021 00:00:00 07/10/2021 11:51:57 [id number] Carrie Griffith [facility] [place] [address] [place] [address] 12/24/2021 00:00:00 12/24/2021 13:16:39 [id number] Kristen Sanchez MD [facility] [place] [address] [place] [address] 02/09/2022 00:00:00 02/10/2022 08:51:17 [id number] Kristen Sanchez MD [facility] [place] [address] [place] [address] 08/16/2022 10:55:28 08/16/2022 11:22:10 Erectile dysfunction 372904327 F52.21 Chronic cough 03857031 R 05.3 Adverse re action to drug 64969961 T50.905A Pt to hold metoprolol to see if stopping this will help his fatigue. Monitor BP away from here. [id number] Kristen Sanchez MD [facility] [place] [facility] [place] [address] 09/05/2022 08:55:04 09/05/2022 09:22:48 Adult health examination 468970779 Z00.00 Screening for disorder 072767483 Z13.9 Hyperlipidemia 97424670 E78.5 Screening for malignant neoplasm of prostate 190938637 Z12.5 Immunization due 6979998 08 Z28.39 Essential hypertension 53678913 I10 [id number] Carrie Griffith, [facility] [place] [facility] [place] [address] [place] [address] 12/07/2022 11:22:16 12/07/2022 12:18:53 Obstructive sleep apnea syndrome 17727611 G47.33 Study 2013 with an AHI of 22 and no optimal pressure determined .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 If unable to fall asleep after 30 minutes, patient should get out of bed but should not engage in any activity that requires sustained mental alertness. -Maintain a regular bedtime and wake-up time even on weekends or days off of work.-Avoi d excessive naps during the daytime. If a nap is necessary, limit it to no more than 30minutes. -Minimize environmen katina noise, bright lights, and extremes in bedroom temperatur e.-Avoid alcohol, caffeinate d beverages, and nicotine products for at least 6 hours prior to bedtime.-A void strenuous exercise and large meals for at least 4 hours prior to bedtime.RT C in one year, PRN for concerns [id number] Hossein Schaffer DPM [facility] [place] [address] [facility] [address] [place] [address] 01/09/2023 11:08:25 01/10/2023 11:48:42 Peroneal tendinitis of right lower limb [id number] 99509 M76.71 Rx physical therapyrec ommend [employer] orthoticsc ontinue new balance supportive shoe gearrice therapy reviewed with the patientfol low-up in 1 month Health Concerns Section Related Observation LastModified by Organization Detai ls LastModified Time None Recorded Concern Status LastModified by Organization Details LastModified Time None Recorded Advance Directives Directive None Recorded Payers Insurance Date Sequence Insurance Name Policy Number Policy Rashid Covered Member ID Rashid Member ID Guarantor Name 01/06/2023 1 [place] Tunde Roberts [id number] Tunde Roberts 01/06/2023 2 AARP (MEDICARE SUPPLEMENT) Tunde Roberts [id number] Tunde Roberts Notes Date Note Type Note Provider Name and Address Organization Details Recorded Time 08/16/2022 text/html Here today for med refills. Needs cialis. It needs to go to [facility]. Needs benzonatate too at [facility]. His BP meds make him tired. He feels he has to take a nap during the day. He is on metoprolol and olmesartan. Pt will get a cough at times and the tessalon perles do help Kristen Sanchez MD [address] [facility], [facility] [address], [place], [address], [place] [employer] 08/16/2022 19:09:27 09/05/2022 text/html Here today for MWV. Needs Bw ordered. Did cologuard 1 year ago.Did a prostate exam a year ago. No fmhx of prostate cancer.There is a spot on left CW and wants looked at. Kristen Sanchez MD [address], [facility] [address], [place], [address], [place] 09/05/2022 09:27:18 12/07/2022 text/html Mr Roberts presents today to follow up on OSAHe has been doing well but has had increased social stressors as his was diagnosed with cancer and is currently getting chemotherapy.He is taking naps most days, he is now retiredContinues to use same mask, he does not wake due to leak or discomfort.He reports restful sleep, bedtime is usually around 2029.Does not fall asleep unintentionally.Feels rested when waking.He denies xerostomia and aerophagia.GERD is controlled with daily Pepcid, Gaviscon, and diet modificationNo sinus congestion.Denies morning headachesNocturia is 2-3x nightly, this is unchangedNo difficulty with supply replacement Carrie Griffith, [facility] [address], [facility] [address], [place], [address], [place] 12/07/2022 16:15:17 01/09/2023 text/html . Patient is a 67-year-old male who presents the office with complaints of pain to his right foot on the outside. Patient states he has not had any injury but states he used to play a lot of racquetball but this has stopped due to discomfort in his right foot. Patient states the pain is along his peroneal brevis tendon. Patient has pinpoint tenderness at the insertion of brevis tendon at the base of the 5th metatarsal. Patient had x-rays which were negative for any acute injury. Patient states the pain is worse after he has played sports and he rates the pain as 3/10. Patient describes it as achy in nature. Patient denies any open wounds or infection. Patient states with rest it does not cause any issues. Patient denies any other complaints. Hossein Schaffer DPM [address], [place], [address], [place] 01/09/2023 14:59:26
[2025-03-10 19:00] LABS: Alanine Aminotransferase 29 U/L (6-50); Albumin Level 4.5 g/dL (3.5-5.1); Alkaline Phosphatase 63 U/L (38-126); Anion Gap 8 mmol/L (4-12); Aspartate Amino Transferase 62 U/L (17-59); Bilirubin,Total 0.9 mg/dL (0.2-1.3); Blood Urea Nitrogen 13 mg/dL (9-20); Calcium 9.5 mg/dL (8.4-10.2); Carbon Dioxide 22 mmol/L (22-30); Chloride 105 mmol/L (98-107); Cholesterol 196 mg/dL (0-200); Estimated Glomerular Filt Rate > 60; Glucose 83 mg/dL (65-110); HDL Direct 31 mg/dL; Potassium 4.1 mmol/L (3.4-5.0); Sodium 135 mmol/L (137-145); Total Protein 7.9 g/dL (6.3-8.2); Triglycerides 222 mg/dL (<150)
[2025-03-10 19:35] LABS: Prostate Specific Antigen 2.4 ng/mL (< OR = 4.0)
== END 2025-03-10 08:22 | disposition home or self-care (01) ==
PROVIDERS: PCP Nurse Practitioner Adult Health; Visit Provider Nurse Practitioner Adult Health
DX: E78.5 Hyperlipidemia, unspecified (principal); E55.9 Vitamin D deficiency, unspecified; Z12.5 Encounter for screening for malignant neoplasm of prostate
CPT/HCPCS: 36415; 80053; 80061; 82306; 84153; G0103

== ENCOUNTER → 2025-03-31 08:06 | Outpatient (CLI) | payer MEDICARE, SELFPAY ==
--- NOTE | 2025-04-28 09:08 | WPDSLEEPSTUD ---
Sleep Study Date of Study: 03/31/25 Ordering Provider: Markel Valdez APRN Interpreting Physician: Moira Cosby DO Sleep Study Type: Split Polysomnogram Height: 1.7 m Weight: 83.461 kg Body Mass Index: 28.8 Neck Circumference (inches): 16 [place]: 17 Reason for Sleep Study Excessive daytime sleepiness; previously diagnosed SIDNEY on CPAP Sleep History The patient is a 69-year-old male that had a sleep study ordered by the Pulmonary group for evaluation of sleep apnea. The patient frequently awakens from sleep short of breath. He occasionally awakens at night with heartburn, belching or cough. He frequently snores and it is frequently loud enough that others complain. He constantly has trouble sleeping when he has a cold. He occasionally wakes up gasping for air throughout the night. He frequently has breathing problems at night observed by himself or others. He occasionally sweats excessively at night. He rarely has heart palpitations or irregular heartbeats during the night. He frequently falls asleep during the day but never while driving. He denies sleep paralysis and cataplexy. He frequently has trouble at school or work due to sleepiness. He rarely experiences vivid dreamlike scenes upon awakening or falling asleep. He denies feeling afraid of going to sleep. He occasionally has nightmares. He rarely remembers his dreams. He occasionally has thoughts racing through his mind. He occasionally feels sad or depressed. He frequently has anxiety. He frequently has muscular tension. He rarely notices parts of his body jerk. He denies kicking during the night. He frequently has crawling and aching feelings in his legs and frequently has leg pain during the night. He occasionally grinds his teeth during sleep but never awakens with morning jaw pain. He is frequently bothered by pain during the day but rarely awakened by pain during the night. He frequently wakes up feeling stiff in the morning. He occasionally wakes up with sore or achy muscles. He rarely wakes up with pain in the neck, spine and other joints. He goes to bed at 9:00 p.m.. It takes him 30 minutes to fall asleep. He wakes up 3 times throughout the night for a multitude of reasons. He is able to fall back asleep within 30 minutes. He wakes up at 5:00 a.m.. He typically gets 6 hours of sleep per night. He will stay in bed for a few minutes after waking up in the morning. He currently lives with his and adult son. He denies consuming any caffeinated beverages within 2 hours of bedtime. He denies engaging in physical exercise before bedtime. He denies reading watching television before falling asleep. He will take naps in afternoon or the evening and they are refreshing. He consumes 6 caffeinated beverages per day. He denies tobacco use. He will consume an alcoholic beverage once per month. He denies recreational drug use. [facility] Past Medical History Medical History BPH (benign prostatic hyperplasia) Asthma GERD (gastroesophageal reflux disease) HLD (hyperlipidemia) HTN (hypertension) Surgical History Surgical History History of repair of hiatal hernia History of hernia repair Family History Family History Father Heart disease Mother Lung cancer Grandparent Depression Social History Social History Smoking status: Never smoker Alcohol intake: current Alcohol use details: 1 drink per month Substance use: never Substance use type: does not use Lack of Transportation: No Lack of Food: Never True Current Housing: I Have Housing Concerned About Future Housing: No Difficulty Paying Gas/Electric Bills: No Difficulty Paying for Meds: No Currently Unemployed: No Education: Master's Degree or Higher Difficulty w/ Childcare or Family Care: No Living arrangements: with family Occupation/Education: retired Gender identity (if verbalized by the patient): Male Spiritual care concerns: No Medications Home Medications ?Medication ?Instructions ?Recorded ?Confirmed ?Type latanoprost 0.005 % eye drops 1 drp EACH EYE DAILY 01/13/23 02/10/25 History loratadine 10 mg tablet (Claritin) 10 mg PO DAILY 01/13/23 02/10/25 History tamsulosin 0.4 mg capsule 0.4 mg PO DAILY 01/13/23 02/10/25 History CoQ10 BYMOUTH 02/06/23 02/10/25 History Gaviscon Chews BYMOUTH 02/06/23 02/10/25 History calcium BYMOUTH 02/06/23 02/10/25 History sildenafil 100 mg tablet See Rx Instructions .Route 01/08/24 02/10/25 Rx .COMPLEX #12 tabs fluticasone propionate 50 2 spray intranasal DAILY #3 02/07/24 02/10/25 Rx mcg/actuation nasal multiple units spray,suspension (Flonase Allergy Relief) albuterol sulfate 90 mcg/actuation 2 inh inhalation Q4H PRN shortness 07/15/24 02/10/25 Rx aerosol inhaler (Ventolin HFA) of breath or wheezing #8.5 grams ergocalciferol (vitamin D2) 1,250 See Rx Instructions .Route 07/15/24 02/10/25 Rx mcg (50,000 unit) capsule .COMPLEX #12 caps hydrochlorothiazide 12.5 mg tablet 12.5 mg PO DAILY #90 tabs 07/15/24 02/10/25 Rx losartan 50 mg tablet 50 mg PO DAILY #90 tabs 11/11/24 02/10/25 Rx aspirin 81 mg tablet 162 mg PO DAILY 11/20/24 02/10/25 History famotidine 40 mg tablet 40 mg PO DAILY #90 tabs 03/11/25 Rx Sleep Procedure A full night split study using the Tapastreet multi-channel system recorded the standard physiologic parameters including EEG, EOG, submentalis EMG, anterior tibialis EMG, EKG, body position, nasal and oral airflow using nasal pressure sensor and thermistor.? Respiratory parameters of chest and abdominal movements were recorded with Respiratory Inductance Plethysmography belts. Oxygen saturation was recorded by pulse oximetry. Video monitoring was also performed. Sleep stages, periodic limb movements, and EEG arousals were scored in 30 second epochs according to the criteria of the AASM Scoring Manual. The Apnea-Hypopnea Index was calculated using CMS guidelines for definition of hypopnea with 4% O2 desaturations while scoring respiratory events. Sleep Architecture During the diagnostic portion of the study, the total recording time was 246.9 minutes. The total sleep time was 149.5 minutes. Sleep latency was 3.9 minutes.? REM latency was 70.0 minutes. Sleep Efficiency was 60.6%. The patient had 21 awakenings for an awakening index of 8.4. Wake after sleep onset time was 93.5 minutes. The patient spent 37.0 minutes, 24.7% of total sleep time in Stage N1. The patient spent 90.5 minutes, 60.5% in Stage N2. The patient spent 4.5 minutes, 3.0% in Stage N3. The patient spent 17.5 minutes, 11.7% in Stage REM sleep. At 02:52:33 AM the patient was placed on PAP treatment and was titrated at pressures ranging from 4 cm H20 up to 11 cm H20 During the treatment portion of the study, the total recording time was 184.8 minutes.? The total sleep time was 150.0 minutes. Sleep latency was 25.0 minutes. REM latency was 47.0 minutes. Sleep Efficiency was 81.2%. Wake after Sleep Onset time was 9.5 minutes. The patient spent 17.5 minutes, 11.7% of total sleep time in Stage N1. The patient spent 81.5 minutes, 54.3% in Stage N2. The patient spent 0.0 minutes, 0.0% in Stage N3. The patient spent 51.0 minutes, 34.0% in Stage REM. Respiratory Analysis During the diagnostic portion of the study, the patient had 75 hypopneas, 2 obstructive apneas and 4 central apneas for an overall Apnea Hypopnea Index of 32.5 events per hour. The REM Apnea Hypopnea Index was 10.3. The NREM Apnea Hypopnea Index was 36.4. The patient had a Central Apnea Hypopnea Index of 1.6. There was no evidence of Ra-Mathews Respirations. During the treatment portion of the study, the patient had 16 hypopneas, 15 obstructive apneas and 1 central apnea for an overall Apnea Hypopnea Index of 12.8 events per hour. The REM Apnea Hypopnea Index was 2.4. The NREM Apnea Hypopnea Index was 18.2. The patient had a Central Apnea Hypopnea Index of 0.4. There was no evidence of Ra-Mathews Respirations. The patient was started on CPAP 4 cm H2O and titrated to CPAP 11 cm H2O due to obstructive apneas and hypopneas. The patient was able to fall asleep starting on CPAP 4 cm H2O. The patient was able to achieve REM sleep starting on CPAP 5 cm H2O. The patient was able to achieve a residual AHI less than 5 with both NREM and REM sleep on the final pressure setting. On CPAP 11 cm H2O, the patient spent 17.5 minutes in NREM and 11.5 minutes in REM with 2 obstructive apneas, resulting in an AHI of 4.1. The patient had a sleep efficiency of 86.6% on this pressure setting. Arousals During the diagnostic portion of the study, there were a total of 90 arousals for an arousal index of 36.1.? There were 25 respiratory arousals for an index of 10.0. There were 1 periodic limb movement arousals for an index of 0.4.? There was 1 isolated limb movement arousal for an index of 0.4. There were 63 spontaneous arousals for an index of 25.3. During the treatment portion of the study, there were a total of 41 arousals for an index of 16.4.? There were 16 respiratory arousals for an index of 6.4. There was 1 periodic limb movement arousal for an index of 0.4.? There were 1 isolated limb movement arousals for an index of 0.4. There were 23 spontaneous arousals for an index of 9.2. Periodic Limb Movements During the diagnostic portion of the study, the patient had 14 isolated limb movements with an index of 5.6. The patient had 11 periodic limb movements with an index of 4.4. The patient had a total of 25 limb movements with a total limb movement index of 10.0. During the treatment portion of the study, the patient had 9 isolated limb movements with an index of 3.6. The patient had 4 periodic limb movements with an index of 1.6. The patient had a total of 13 limb movements with a total limb movement index of 5.2. Oximetry Data During the diagnostic portion of the study, the patient had an average oxygen saturation of - in wake with a minimum oxygen saturation of - and a maximum oxygen saturation of -. The patient had an average oxygen saturation of 93.8% in sleep with a minimum oxygen saturation of 86.0% and a maximum oxygen saturation of 98.0%. The patient had 91 oxygen desaturations resulting in an Oxygen Desaturation Index of 36.5. The patient spent 0.8 minutes, 0.4% of total sleep time with an oxygen saturation less than 88%. During the treatment portion of the study, the patient had an average oxygen saturation of 95.1% in wake with a minimum oxygen saturation of 89.0% and a maximum oxygen saturation of 98.0%. The patient had an average oxygen saturation of 94.8% in sleep with a minimum oxygen saturation of 88.0% and a maximum oxygen saturation of 98.0%. The patient had 41 oxygen desaturations resulting in an Oxygen Desaturation Index of 16.4. The patient spent 0 minutes of total sleep time with an oxygen saturation less than 88%. Snoring Profile Moderate snoring was present in the baseline portion of the study. The snoring resolved once the patient was titrated to CPAP 6 cm H2O. Cardiac Profile The EKG lead showed normal sinus rhythm with rare PVCs. During the diagnostic portion of the study, the average pulse rate was 69.9 bpm.? The minimum pulse rate was 59.0 bpm. The maximum pulse rate was 89.0 bpm. During the treatment portion of the study, the average pulse rate was 63.2 bpm.? The minimum pulse rate was 56.0 bpm. The maximum pulse rate was 87.0 bpm. EEG Profile No signs of seizure activity seen. Assessment and Plan Assessment and Plan (1) SIDNEY (obstructive sleep apnea): Code(s): G47.33 - Obstructive sleep apnea (adult) (pediatric) Status: Acute Assessment and Plan: In the baseline portion of the study, the patient had an overall AHI of 32.5 with desaturation down to 86%. This is consistent with severe sleep apnea. The patient was started on CPAP 4 cm H2O and titrated to CPAP 11 cm H2O due to obstructive apneas and hypopneas. The patient's sleep apnea resolved on the final pressure setting. I recommend that the patient be prescribed CPAP 11 cm H2O, size large Diogenes full face mask, CPAP filters/heated tubing and heated humidity. This should be used with all episodes of sleep.? Compliance should be reviewed within 31-90 days of starting therapy for usage greater than 4 hours per night greater than 70% of the nights. The patient should be asked about symptoms such as?excessive daytime sleepiness, quality of sleep, decreased nocturia, increased?mental functioning such as memory, mood, and concentration. The patient's sleep history is somewhat suggestive of Restless Leg Syndrome. I recommend that the patient have a serum ferritin drawn for evaluation of iron deficiency anemia. If the patient has a serum ferritin less than 75 ng/mL, I recommend starting a daily iron supplement and a Vitamin C supplement for better absorption. If the serum ferritin is greater than 75 ng/mL, I recommend starting a dopamine agonist and titrating the dose until symptoms resolve. There are nonpharmacological methods to treat limb movements including daily exercise, stretching calf muscles before bed, avoiding excessive amounts of caffeine and alcohol, vitamin B supplementation, magnesium lotion massaged into legs before bed, and use of a weighted blanket. Data The data obtained during this sleep study is adequate for interpretation. Certification This sleep study has been reviewed by a board certified sleep medicine physician.
[2025-04-30 15:01] VITALS: BMI 28.8
== END ==
PROVIDERS: PCP Nurse Practitioner Adult Health; Visit Provider Nurse Practitioner Family
DX: G47.30 Sleep apnea, unspecified (principal); G47.33 Obstructive sleep apnea (adult) (pediatric)
CPT/HCPCS: 95811